=== PATIENT | female | born 1975 | race Caucasian/White ===

== ENCOUNTER 2016-11-17 14:28 | Emergency (ER) | payer BC, OTHER ==
[2016-11-17] MEDS ORDERED: ONDANSETRON 4 MG/2 ML VIAL IVP STA (15:37)
[2016-11-17] MEDS ORDERED: SODIUM CHLORIDE 0.9% 1,000 ML IV ONE (15:37)
[2016-11-17] MEDS ORDERED: FAMOTIDINE 20 MG/2 ML VIAL IV STA (15:37)
--- NOTE | 2016-11-17 15:46 | ED ---
General Adult HPI - General Chief complaint: Recheck/Abnormal Lab/Rx Stated complaint: fever cough Time Seen by Provider: 11/17/16 15:22 Source: patient Mode of arrival: ambulatory Limitations: no limitations - History of Present Illness Initial comments: This is a 41-year-old female who presents emergency department for multiple complaints. She states that she's been having flulike symptoms for the last month. She states that she's been very nauseated and had loss of appetite. She 's also felt chilled at home and fevers however she has not checked her temperature. She states that she thought it would just go away however she continues to feel worse so she decided come emergency department. She states that nothing seems to make the symptoms better or worse. She does admit to some epigastric abdominal pain associated with nausea. She has not seen her primary doctor or any doctor for this. She admits to some weight loss since the symptoms started. She denies any dysuria or hematuria. No vaginal bleeding or discharge. Last menstrual period was approximately 2 weeks ago. No sick contacts. No other complaints. - Related Data Home Medications Medication Instructions Recorded Confirmed Multivitamins, Thera [Multivitamin 1 tab PO DAILY 11/17/16 11/17/16 (formulary)] Previous Rx's Medication Instructions Recorded Diazepam [Valium] 5 mg PO BID PRN #15 tab 11/17/16 Metoclopramide [Reglan] 10 mg PO TID PRN #20 tab 11/17/16 Allergies Allergy/AdvReac Type Severity Reaction Status Date / Time Penicillins Allergy Dyspnea Verified 11/17/16 15:28 Review of Systems ROS Statement: Those systems with pertinent positive or pertinent negative responses have been documented in the HPI. ROS Other: All systems not noted in ROS Statement are negative. Past Medical History Past Medical History: Musculoskeletal Disorder Additional Past Medical History / Comment(s): herniated disc in neck. Less than one month ago pt. had a seizure. depression History of Any Multi-Drug Resistant Organisms: None Reported Past Surgical History: Appendectomy, Ear Surgery, Tubal Ligation Past Anesthesia/Blood Transfusion Reactions: No Reported Reaction Past Psychological History: Anxiety, Depression Smoking Status: Current every day smoker Past Alcohol Use History: Occasional Additional Past Alcohol Use History / Comment(s): Pt. states that she has drank twice in the last two months Past Drug Use History: Marijuana Additional Drug Use History / Comment(s): pt denies prior drug use - Past Family History Mother History Unknown: Yes Father History Unknown: Yes Additional Family Medical History / Comment(s): "excess iron" General Exam - General Exam Comments Initial Comments: Constitutional: Awake alert Appears comfortable Head: Normocephalic atraumatic Eyes: no conjunctival injection No scleral icterus EOMI ENT: TMs clear bilaterally, oropharynx is moist without any erythema Neck: No JVD Supple Heart: Regular rate rhythm normal S1-S2 no murmurs Lungs: Clear to auscultation bilaterally No wheezing No rales Abdomen: Soft nondistended mild tenderness in the epigastric region with no rebound or guarding Extremities: Non edematous DP pulses intact Radial pulses intact Neuro: A&Ox3 No focal neurologic deficits Psych: Appropriate mood and affect Limitations: no limitations Course Vital Signs 11/17/16 11/17/16 11/17/16 14:54 15:15 17:18 Temperature 97.7 F Pulse Rate 82 80 71 Respiratory 18 16 15 Rate Blood Pressure 124/72 132/77 116/55 O2 Sat by Pulse 100 100 95 Oximetry Medical Decision Making - Medical Decision Making This is a 41-year-old female presents emergency department for nausea, weight loss, chills, multiple other complaints at For last month. Blood work was reviewed and unremarkable. X-ray was also unremarkable. The patient was improved after Reglan and Valium. We'll send her home on these medications. The patient did update him that she was told that she needed to have a LEEP procedure for an abnormal Pap in the past however did not follow-up. She is also been having abnormal vaginal bleeding. Her blood counts are normal here but she needs close follow up with an [employer] for this. She also needs close follow-up with her primary doctor. Told to call make appointments. She can return if she has worsening symptoms. All questions are answered. - Lab Data Result diagrams: 11/17/16 15:48 11/17/16 15:48 Lab Results 11/17/16 11/17/16 11/17/16 Range/Units 15:48 15:48 15:50 WBC 10.8 H (3.8-10.6) k/uL RBC 4.71 (3.80-5.40) m/uL Hgb 15.7 (11.4-16.0) gm/dL Hct 47.5 H (34.0-46.0) % MCV 100.9 H (80.0-100.0) fL MCH 33.3 (25.0-35.0) pg MCHC 33.0 (31.0-37.0) g/dL RDW 13.8 (11.5-15.5) % Plt Count 347 (150-450) k/uL Neutrophils % 62 % Lymphocytes % 31 % Monocytes % 4 % Eosinophils % 1 % Basophils % 1 % Neutrophils # 6.7 (1.3-7.7) k/uL Lymphocytes # 3.3 (1.0-4.8) k/uL Monocytes # 0.4 (0-1.0) k/uL Eosinophils # 0.1 (0-0.7) k/uL Basophils # 0.1 (0-0.2) k/uL Macrocytosis Slight Sodium 138 (137-145) mmol/L Potassium 4.3 (3.5-5.1) mmol/L Chloride 102 (98-107) mmol/L Carbon Dioxide 25 (22-30) mmol/L Anion Gap 11 mmol/L BUN 10 (7-17) mg/dL Creatinine 0.72 (0.52-1.04) mg/dL Est GFR (MDRD) Af Amer >60 (>60 ml/min/1.73 sqM) Est GFR (MDRD) Non-Af >60 (>60 ml/min/1.73 sqM) Glucose 85 (74-99) mg/dL Calcium 10.2 (8.4-10.2) mg/dL Magnesium 2.0 (1.6-2.3) mg/dL Total Bilirubin 0.7 (0.2-1.3) mg/dL AST 26 (14-36) U/L ALT 29 (9-52) U/L Alkaline Phosphatase 62 (38-126) U/L Total Protein 8.1 (6.3-8.2) g/dL Albumin 4.9 (3.5-5.0) g/dL Amylase 48 (30-110) U/L Lipase 108 (23-300) U/L TSH 2.140 (0.465-4.680) mIU/L Urine Color Urine Appearance (Clear) Urine pH (5.0-8.0) Ur Specific Lilly (1.001-1.035) Urine Protein (Negative) Urine Glucose (UA) (Negative) Urine Ketones (Negative) Urine Blood (Negative) Urine Nitrite (Negative) Urine Bilirubin (Negative) Urine Urobilinogen (<2.0) mg/dL Ur Leukocyte Esterase (Negative) Urine HCG, Qual Not Detected (Not Detectd) Urine Opiates Screen (NotDetected) Ur Oxycodone Screen (NotDetected) Urine Methadone Screen (NotDetected) Ur Propoxyphene Screen (NotDetected) Ur Barbiturates Screen (NotDetected) U Tricyclic Antidepress (NotDetected) Ur Phencyclidine Scrn (NotDetected) Ur Amphetamines Screen (NotDetected) U Methamphetamines Scrn (NotDetected) U Benzodiazepines Scrn (NotDetected) Urine Cocaine Screen (NotDetected) U Marijuana (THC) Screen (NotDetected) 11/17/16 Range/Units 15:50 WBC (3.8-10.6) k/uL RBC (3.80-5.40) m/uL Hgb (11.4-16.0) gm/dL Hct (34.0-46.0) % MCV (80.0-100.0) fL MCH (25.0-35.0) pg MCHC (31.0-37.0) g/dL RDW (11.5-15.5) % Plt Count (150-450) k/uL Neutrophils % % Lymphocytes % % Monocytes % % Eosinophils % % Basophils % % Neutrophils # (1.3-7.7) k/uL Lymphocytes # (1.0-4.8) k/uL Monocytes # (0-1.0) k/uL Eosinophils # (0-0.7) k/uL Basophils # (0-0.2) k/uL Macrocytosis Sodium (137-145) mmol/L Potassium (3.5-5.1) mmol/L Chloride (98-107) mmol/L Carbon Dioxide (22-30) mmol/L Anion Gap mmol/L BUN (7-17) mg/dL Creatinine (0.52-1.04) mg/dL Est GFR (MDRD) Af Amer (>60 ml/min/1.73 sqM) Est GFR (MDRD) Non-Af (>60 ml/min/1.73 sqM) Glucose (74-99) mg/dL Calcium (8.4-10.2) mg/dL Magnesium (1.6-2.3) mg/dL Total Bilirubin (0.2-1.3) mg/dL AST (14-36) U/L ALT (9-52) U/L Alkaline Phosphatase (38-126) U/L Total Protein (6.3-8.2) g/dL Albumin (3.5-5.0) g/dL Amylase (30-110) U/L Lipase (23-300) U/L TSH (0.465-4.680) mIU/L Urine Color Light Yellow Urine Appearance Clear (Clear) Urine pH 7.0 (5.0-8.0) Ur Specific Lilly 1.006 (1.001-1.035) Urine Protein Negative (Negative) Urine Glucose (UA) Negative (Negative) Urine Ketones 1+ H (Negative) Urine Blood Negative (Negative) Urine Nitrite Negative (Negative) Urine Bilirubin Negative (Negative) Urine Urobilinogen <2.0 (<2.0) mg/dL Ur Leukocyte Esterase Negative (Negative) Urine HCG, Qual (Not Detectd) Urine Opiates Screen Not Detected (NotDetected) Ur Oxycodone Screen Not Detected (NotDetected) Urine Methadone Screen Not Detected (NotDetected) Ur Propoxyphene Screen Not Detected (NotDetected) Ur Barbiturates Screen Not Detected (NotDetected) U Tricyclic Antidepress Not Detected (NotDetected) Ur Phencyclidine Scrn Not Detected (NotDetected) Ur Amphetamines Screen Not Detected (NotDetected) U Methamphetamines Scrn Not Detected (NotDetected) U Benzodiazepines Scrn Not Detected (NotDetected) Urine Cocaine Screen Not Detected (NotDetected) U Marijuana (THC) Screen Detected H (NotDetected) Disposition Clinical Impression: Nausea, Weight loss Disposition: HOME SELF-CARE Condition: Stable Instructions: Acute Nausea and Vomiting (ED) Prescriptions: Diazepam [Valium] 5 mg PO BID PRN #15 tab PRN Reason: muscle cramp Metoclopramide [Reglan] 10 mg PO TID PRN #20 tab PRN Reason: Nausea Referrals: Jacqueline Cantu MD [Primary Care Provider] - 1-2 days Delilah Beltran MD [STAFF PHYSICIAN] - 1-2 days
[2016-11-17 15:56] LABS: Basophils # (A) 0.1 k/uL (0-0.2); Basophils % (A) 1 %; CHCM 33.9; Eosinophils # (A) 0.1 k/uL (0-0.7); Eosinophils % (A) 1 %; HCT 47.5 % (34.0-46.0); HGB 15.7 gm/dL (11.4-16.0); Luc % (Auto) 2; Lymphocytes # (A) 3.3 k/uL (1.0-4.8); Lymphocytes % (A) 31 %; MCH 33.3 pg (25.0-35.0); MCV 100.9 fL (80.0-100.0); Macrocytosis Slight; Mean Platelet Volume 6.6; Monocytes # (A) 0.4 k/uL (0-1.0); Monocytes % (A) 4 %; Neutrophils # (A) 6.7 k/uL (1.3-7.7); Neutrophils % (A) 62 %; RBC 4.71 m/uL (3.80-5.40); RDW 13.8 % (11.5-15.5); WBC 10.8 k/uL (3.8-10.6); WBC (Perox) 10.46
[2016-11-17 16:05] LABS: Appearance,Urine Clear (Clear); Bilirubin,Urine Negative (Negative); Glucose,Urine (UA) Negative (Negative); Ketones,Urine 1+ (Negative); Leukocyte Esterase,Urine Negative (Negative); Nitrite,Urine Negative (Negative); Protein,Urine Negative (Negative); Specific Gravity,Urine 1.006 (1.001-1.035); UA Billing (MACRO vs. MICRO) CHEM; Urobilinogen,Urine <2.0 mg/dL (<2.0)
[2016-11-17 16:11] LABS: ALT 29 U/L (9-52); AST 26 U/L (14-36); Alkaline Phosphatase 62 U/L (38-126); Amylase 48 U/L (30-110); Anion Gap 11 mmol/L; Blood Urea Nitrogen 10 mg/dL (7-17); Calcium 10.2 mg/dL (8.4-10.2); Carbon Dioxide 25 mmol/L (22-30); Chloride 102 mmol/L (98-107); Glucose 85 mg/dL (74-99); Non-African American GFR(MDRD) >60 (>60 ml/min/1.73 sqM); Potassium 4.3 mmol/L (3.5-5.1); Sodium 138 mmol/L (137-145); Total Bilirubin 0.7 mg/dL (0.2-1.3); Total Protein 8.1 g/dL (6.3-8.2)
--- NOTE | 2016-11-17 16:44 | XR ---
EXAMINATION TYPE: XR abdomen acute w cxr DATE OF EXAM: 11/17/2016 4:38 PM COMPARISON: NONE HISTORY: Umbilical pain TECHNIQUE: 3 views FINDINGS: Lungs are clear. There is no heart failure. Costophrenic angles are clear. Bowel gas pattern is normal. There is no sign of intestinal obstruction or pneumoperitoneum. There ar e surgical clips in the lower abdomen. There is no sign of a mass. Fecal pattern is normal. There are no pathologic calcifications over the kidneys.. IMPRESSION: Nonacute abdomen. No active cardiopulmonary disease. Chest x-ray is stable compared to 07/01/2016.
[2016-11-17] MEDS ORDERED: DIAZEPAM 5 MG/ML 2 ML SYRINGE IVP STA (16:53)
[2016-11-17] MEDS ORDERED: METOCLOPRAMIDE 5 MG/ML 2 ML VIAL IVP STA (16:53)
[2016-11-17 17:18] VITALS: BP 116/55; PULSE 71; RESP 15
[2016-11-17 17:40] VITALS: TEMP 97.8
== END 2016-11-17 17:42 | disposition home or self-care (01) ==
LOC: EC 14:28
DX: R11.0 Nausea (principal); R63.4 Abnormal weight loss; Z68.20 Body mass index [BMI] 20.0-20.9, adult; N93.9 Abnormal uterine and vaginal bleeding, unspecified; R50.9 Fever, unspecified; R05 Cough; R10.13 Epigastric pain; F17.200 Nicotine dependence, unspecified, uncomplicated; Z79.899 Other long term (current) drug therapy; Z88.0 Allergy status to penicillin
CPT/HCPCS: 36415; 80053; 84443; 82150; 83690; 83735; 85025; 81003; 81025; 80306; 74022; 99283; 96374; 96375 ×3; 96361; J2765; J3360; J2405

== ENCOUNTER 2016-12-19 11:05 | Emergency (ER) | payer BC, OTHER ==
--- NOTE | 2016-12-19 11:41 | ED ---
General Adult HPI - General Chief complaint: Extremity Injury, Upper Stated complaint: right wrist pain Time Seen by Provider: 12/19/16 11:36 Source: patient, RN notes reviewed Mode of arrival: ambulatory Limitations: no limitations - History of Present Illness Initial comments: Patient 41-year-old female who presents emergency room today with a chief complaint of injury to the right wrist that occurred yesterday. She does admit that she was putting a box overhead onto a shelf and she felt a pop in the right wrist. She does admit that it's worse with flexion and extension at the right wrist. Patient denies any other complaints associated symptoms. Patient denies any recent fever, chills, shortness of breath, chest pain, back pain, abdominal pain, nausea or vomiting, numbness or tingling, dysuria or hematuria, constipation or diarrhea, headaches or visual changes, or any other complaints. - Related Data Home Medications Medication Instructions Recorded Confirmed Multivitamins, Thera [Multivitamin 1 tab PO DAILY 11/17/16 12/19/16 (formulary)] Allergies Allergy/AdvReac Type Severity Reaction Status Date / Time Penicillins Allergy Dyspnea Verified 12/19/16 12:11 Review of Systems ROS Statement: Those systems with pertinent positive or pertinent negative responses have been documented in the HPI. ROS Other: All systems not noted in ROS Statement are negative. Past Medical History Past Medical History: Musculoskeletal Disorder Additional Past Medical History / Comment(s): herniated disc in neck. Less than one month ago pt. had a seizure. depression History of Any Multi-Drug Resistant Organisms: None Reported Past Surgical History: Appendectomy, Ear Surgery, Tubal Ligation Past Anesthesia/Blood Transfusion Reactions: No Reported Reaction Past Psychological History: Anxiety, Depression Smoking Status: Current every day smoker Past Alcohol Use History: Occasional Additional Past Alcohol Use History / Comment(s): Pt. states that she has drank twice in the last two months Past Drug Use History: Marijuana Additional Drug Use History / Comment(s): pt denies prior drug use - Past Family History Mother History Unknown: Yes Father History Unknown: Yes Additional Family Medical History / Comment(s): "excess iron" General Exam - General Exam Comments Initial Comments: General: The patient is awake and alert, in no distress, and does not appear acutely ill. Neck: The neck is supple, there is no tenderness or JVD. Cardiovascular: There is a regular rate and rhythm. No murmur, rub or gallop is appreciated. Respiratory: Lungs are clear to auscultation, respirations are non-labored, breath sounds are equal. No wheezes, stridor, rales, or rhonchi. Musculoskeletal: Patient has normal appearance of the right wrist no obvious deformity. Shows limited range of motion both flexion and extension due to pain. Patient does have tenderness of the distal right radius. No tenderness in snuffbox area. Cap refill less than 2 seconds. Sensations intact. Pulses equal bilaterally 2+. Strength 5/5. Neurological: A&O x 3. CN II-XII intact, There are no obvious motor or sensory deficits. Coordination appears grossly intact. Speech is normal. Skin: Skin is warm and dry and no rashes or lesions are noted. Psychiatric: Normal mood and affect. Limitations: no limitations Course Vital Signs 12/19/16 11:26 Temperature 99 F Pulse Rate 92 Respiratory 20 Rate Blood Pressure 114/55 O2 Sat by Pulse 100 Oximetry Medical Decision Making - Medical Decision Making Patient's x-ray reviewed and negative for any acute abnormalities. Results were discussed with the patient. She'll be placed in Mike wrap. Advised to use this during the day when she is up moving around but not sleep. Advised follow- up family doctor or orthopedics over the next week if symptoms persist. Advised ice elevate and use ibuprofen for pain. Disposition Clinical Impression: Wrist sprain Disposition: HOME SELF-CARE Condition: Good Instructions: Wrist Sprain (ED) Additional Instructions: Continue to ice elevate the affected area at least 4 times a day for 20 minutes at a time. Please use Mike wrap on up and moving around as discussed. Do not sleep with this on. Please use ibuprofen for pain. Please follow-up family doctor or orthopedics over the next 7-10 days if symptoms persist. Please return for any other concerns. Referrals: Jacqueline Cantu MD [Primary Care Provider] - 1-2 days Time of Disposition: 12:27
--- NOTE | 2016-12-19 11:59 | XR ---
EXAMINATION TYPE: XR wrist complete RT DATE OF EXAM: 12/19/2016 CLINICAL HISTORY: Right wrist pain after lifting injury. TECHNIQUE: Frontal, lateral, scaphoid, and oblique images of the right wrist are obtained. COMPARISON: None FINDINGS: There is no acute fracture/dislocation evident in the right wrist. The joint spaces in th e right wrist appear within normal limits. A 2 mm well-defined ossific fragment is suspected old tiny avulsion fracture from ulnar styloid. The overlying soft tissue appears unremarkable. IMPRESSION: There is no acute fracture or dislocation in the right wrist.
[2016-12-19 12:38] VITALS: BP 121/71; PULSE 78; RESP 16; TEMP 99.4
== END 2016-12-19 12:40 | disposition home or self-care (01) ==
LOC: EC 11:05
DX: S63.501A Unspecified sprain of right wrist, initial encounter (principal); F17.200 Nicotine dependence, unspecified, uncomplicated; Z88.0 Allergy status to penicillin; Z79.899 Other long term (current) drug therapy; X50.0XXA Overexertion from strenuous movement or load, initial encounter
CPT/HCPCS: 99283

== ENCOUNTER 2017-12-07 19:06 | Emergency (ER) | payer BC, OTHER ==
[2017-12-07 19:11] VITALS: RESP 18
[2017-12-07] MEDS ORDERED: IPRATROPIUM-ALBUTEROL 3 ML NEB INHALATION STA (19:42)
[2017-12-07] MEDS ORDERED: KETOROLAC 30 MG/ML 1 ML VIAL IVP STA (19:44)
--- NOTE | 2017-12-07 19:45 | ED ---
Chest Pain HPI - General Chief Complaint: Chest Pain Stated Complaint: chest pain Time Seen by Provider: 12/07/17 19:32 Source: patient, RN notes reviewed Mode of arrival: wheelchair Limitations: no limitations - History of Present Illness Initial Comments: This is a 42-year-old female who states she in the past is had a cardiac procedure for irregular heartbeat who states she still having chest pain all day while at work she points her left upper chest wall sharp in nature is worse with certain movements and deep breathing she also has a cough with some phlegm no fevers chills or sweats. She states she had a cough for about a month on and off she is a smoker one pack of cigarettes per day. She does state that she has exertional dyspnea. She has no personal history of any coronary artery disease. She denies any other complaints at this time. She is very anxious she states. MD Complaint: chest pain, other - Related Data Previous Rx's Medication Instructions Recorded Albuterol Inhaler [Ventolin Hfa 2 puff INHALATION Q6HR PRN #1 12/07/17 Inhaler] inhaler Ibuprofen 800 mg PO Q6HR PRN #20 tablet 12/07/17 predniSONE 20 mg PO BID #10 tab 12/07/17 Allergies Allergy/AdvReac Type Severity Reaction Status Date / Time Penicillins Allergy Dyspnea Verified 12/07/17 19:47 Review of Systems ROS Statement: Those systems with pertinent positive or pertinent negative responses have been documented in the HPI. ROS Other: All systems not noted in ROS Statement are negative. EKG Findings - EKG Results: EKG: interpreted by YEMI ACOSTA, sinus rhythm, normal axis, normal QRS, normal ST/ T, no acute changes (EKG shows normal sinus rhythm a 74 NJ interval 122 QRS 86 QT since QTC of 384/426 this is a normal-appearing EKG) Past Medical History Past Medical History: Musculoskeletal Disorder Additional Past Medical History / Comment(s): herniated disc in neck. Less than one month ago pt. had a seizure. depression History of Any Multi-Drug Resistant Organisms: None Reported Past Surgical History: Appendectomy, Ear Surgery, Tubal Ligation Past Anesthesia/Blood Transfusion Reactions: No Reported Reaction Past Psychological History: Anxiety, Depression Smoking Status: Current every day smoker Past Alcohol Use History: Occasional Past Drug Use History: Marijuana - Past Family History Mother History Unknown: Yes Father History Unknown: Yes Additional Family Medical History / Comment(s): "excess iron" General Exam - General Exam Comments Initial Comments: This a well-developed well-nourished awake alert oriented 3 female Limitations: no limitations General appearance: anxious Head exam: Present: atraumatic, normocephalic, normal inspection Eye exam: Present: normal appearance, PERRL, EOMI. Absent: scleral icterus, conjunctival injection, periorbital swelling ENT exam: Present: normal exam, mucous membranes moist Neck exam: Present: normal inspection. Absent: tenderness, meningismus, lymphadenopathy Respiratory exam: Present: normal lung sounds bilaterally, chest wall tenderness. Absent: respiratory distress, wheezes, rales, rhonchi, stridor Cardiovascular Exam: Present: regular rate, normal rhythm, normal heart sounds. Absent: systolic murmur, diastolic murmur, rubs, gallop, clicks GI/Abdominal exam: Present: soft, normal bowel sounds. Absent: distended, tenderness, guarding, rebound, rigid Extremities exam: Present: normal inspection, full ROM, normal capillary refill. Absent: tenderness, pedal edema, joint swelling, calf tenderness Back exam: Present: normal inspection Neurological exam: Present: alert, oriented X3, CN II-XII intact Psychiatric exam: Present: normal affect, normal mood Skin exam: Present: warm, dry, intact, normal color. 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 Reevaluation #2: 12/07/17 21:11 We did discuss smoking cessation the told conversation lasting 3.1 minutes Chest Pain MDM - MDM I did review the imaging no acute findings patient did get marked improvement from the medication was given the patient's presentation consistent with a bronchospasm and costochondritis she was instructed to quit smoking we discharged with appropriate medication. Disposition Clinical Impression: Costalchondritis, Chest wall syndrome, Acute bronchospasm, Smoking Disposition: HOME SELF-CARE Condition: Stable Instructions: Costochondritis (ED), Chest Pain (ED), Bronchospasm (ED), How to Stop Smoking (ED) Prescriptions: Albuterol Inhaler [Ventolin Hfa Inhaler] 2 puff INHALATION Q6HR PRN #1 inhaler PRN Reason: Dyspnea Ibuprofen 800 mg PO Q6HR PRN #20 tablet PRN Reason: Pain predniSONE 20 mg PO BID #10 tab Is patient prescribed a controlled substance at d/c from ED?: No Referrals: Jacqueline Cantu MD [Primary Care Provider] - 1-2 days
[2017-12-07 20:08] LABS: Basophils # (A) 0.1 k/uL (0-0.2); Basophils % (A) 1 %; Eosinophils # (A) 0.3 k/uL (0-0.7); Eosinophils % (A) 3 %; HCT 44.1 % (34.0-46.0); HGB 14.8 gm/dL (11.4-16.0); Lymphocytes # (A) 3.2 k/uL (1.0-4.8); Lymphocytes % (A) 33 %; MCH 32.4 pg (25.0-35.0); MCHC 33.5 g/dL (31.0-37.0); MCV 96.7 fL (80.0-100.0); Mean Platelet Volume 6.7; Monocytes # (A) 0.6 k/uL (0-1.0); Monocytes % (A) 6 %; Neutrophils # (A) 5.3 k/uL (1.3-7.7); Neutrophils % (A) 56 %; Platelet Count 381 k/uL (150-450); RBC 4.56 m/uL (3.80-5.40); RDW 12.9 % (11.5-15.5); WBC 9.6 k/uL (3.8-10.6)
--- NOTE | 2017-12-07 20:19 | XR ---
EXAMINATION TYPE: XR chest 2V DATE OF EXAM: 12/07/2017 COMPARISON: Prior chest 07/01/2016 HISTORY: Chest pain, shortness of breath and cough TECHNIQUE: Frontal and lateral views of the chest are obtained. FINDINGS: There is no focal air space opacity, pleural effusion, or pneumothorax seen. The cardiac silhouette size is within normal limits. Prominent lung lines suggest underlying COPD. The osseous st ructures are intact. IMPRESSION: No acute cardiopulmonary process.
[2017-12-07 20:31] LABS: ALT 28 U/L (9-52); AST 25 U/L (14-36); Alkaline Phosphatase 61 U/L (38-126); Amylase 41 U/L (30-110); Anion Gap 11 mmol/L; Blood Urea Nitrogen 11 mg/dL (7-17); Calcium 9.6 mg/dL (8.4-10.2); Carbon Dioxide 26 mmol/L (22-30); Chloride 104 mmol/L (98-107); Glucose 72 mg/dL (74-99); Lipase 200 U/L (23-300); Magnesium 2.1 mg/dL (1.6-2.3); Potassium 4.1 mmol/L (3.5-5.1); Sodium 141 mmol/L (137-145); Total Bilirubin 0.3 mg/dL (0.2-1.3); Total Protein 6.4 g/dL (6.3-8.2)
[2017-12-07 20:37] LABS: D-Dimer 0.27 mg/L FEU (<0.60); Partial Thromboplastin Time 24.5 sec (22.0-30.0); Prothrombin Time 9.6 sec (9.0-12.0)
[2017-12-07 21:00] LABS: Creatine Kinase 144 U/L (30-135)
[2017-12-07 21:17] LABS: Creatine Kinase MB 1.8 ng/mL (0.0-2.4); Troponin I <0.012 ng/mL (0.000-0.034)
[2017-12-07 21:27] VITALS: BP 107/57; PULSE 82; TEMP 97.6
== END 2017-12-07 21:28 | disposition home or self-care (01) ==
LOC: EC 19:06
DX: J98.01 Acute bronchospasm (principal); M94.0 Chondrocostal junction syndrome [Tietze]; R07.1 Chest pain on breathing; F17.200 Nicotine dependence, unspecified, uncomplicated; Z88.0 Allergy status to penicillin
CPT/HCPCS: 36415; 94640; 93005; 85379; 83880; 80053; 82150; 82550; 82553; 83690; 83735; 84484; 85025; 85610; 85730; 71046; 99285; 96374; 99406; J1885

== ENCOUNTER 2018-04-02 10:40 | Emergency (ER) | payer BC, OTHER ==
--- NOTE | 2018-04-02 11:19 | ED ---
General Adult HPI - General Source: patient, RN notes reviewed, old records reviewed Mode of arrival: ambulatory Limitations: no limitations <Yuan Fagan - Last Filed: 04/02/18 16:10> <Yuan Hogue - Last Filed: 04/02/18 20:49> - General Chief complaint: Psychiatric Symptoms Stated complaint: EPS eval Time Seen by Provider: 04/02/18 10:47 - History of Present Illness Initial comments: 43-year-old female presenting with alcohol abuse and suicidal ideation. Patient states she's had worsening suicidal thoughts over the past 2 weeks. She denies any plan. She was urged by her family members to seek medical attention. She does admit to daily drinking for the past 7 months. She admits she is alcoholic. She also states she took a Xanax several days ago to help improve her symptoms. She denies any suicide attempt or ingestion. Denies any physical complaints. (Yuan Fagan) - Related Data Home Medications Medication Instructions Recorded Confirmed No Known Home Medications 04/02/18 04/02/18 Allergies Allergy/AdvReac Type Severity Reaction Status Date / Time Penicillins Allergy Dyspnea Verified 04/02/18 10:47 Review of Systems ROS Other: All systems not noted in ROS Statement are negative. <Yuan Fagan - Last Filed: 04/02/18 16:10> ROS Other: All systems not noted in ROS Statement are negative. <Yuan Hogue - Last Filed: 04/02/18 20:49> ROS Statement: Those systems with pertinent positive or pertinent negative responses have been documented in the HPI. Past Medical History Past Medical History: Musculoskeletal Disorder Additional Past Medical History / Comment(s): herniated disc in neck. Less than one month ago pt. had a seizure. depression History of Any Multi-Drug Resistant Organisms: None Reported Past Surgical History: Appendectomy, Ear Surgery, Tubal Ligation Past Anesthesia/Blood Transfusion Reactions: No Reported Reaction Past Psychological History: Anxiety, Depression Smoking Status: Current every day smoker Past Alcohol Use History: Abuse, Heavy Past Drug Use History: Marijuana - Past Family History Mother History Unknown: Yes Father History Unknown: Yes Additional Family Medical History / Comment(s): "excess iron" <Yuan Fagan - Last Filed: 04/02/18 16:10> General Exam Limitations: no limitations General appearance: alert, in no apparent distress, anxious Head exam: Present: atraumatic, normocephalic Eye exam: Present: normal appearance, PERRL, EOMI ENT exam: Present: mucous membranes dry Neck exam: Present: normal inspection. Absent: tenderness, meningismus Respiratory exam: Present: normal lung sounds bilaterally. Absent: respiratory distress, wheezes Cardiovascular Exam: Present: regular rate, normal rhythm GI/Abdominal exam: Present: soft. Absent: distended, tenderness, guarding Extremities exam: Present: normal inspection, normal capillary refill. Absent: pedal edema Back exam: Present: normal inspection Neurological exam: Present: alert, oriented X3, CN II-XII intact. Absent: motor sensory deficit Psychiatric exam: Present: depressed, anxious, suicidal ideation Skin exam: Present: warm, dry, intact, normal color <Yuan Fagan - Last Filed: 04/02/18 16:10> Course <Yuan Fagan - Last Filed: 04/02/18 16:10> <Yuan Hogue - Last Filed: 04/02/18 20:49> Vital Signs 04/02/18 04/02/18 04/02/18 10:45 14:00 19:13 Temperature 98.4 F Pulse Rate 113 H 81 77 Respiratory 20 16 18 Rate Blood Pressure 121/70 99/49 104/49 O2 Sat by Pulse 98 99 98 Oximetry 04/02/18 04/02/18 19:32 20:29 Temperature 98.5 F Pulse Rate 74 Respiratory 18 Rate Blood Pressure 103/57 O2 Sat by Pulse 100 Oximetry - Reevaluation(s) Reevaluation #1: 04/02/18 16:10 Patient's care is signed out to oncoming physician Dr. Hogue awaiting EPS disposition. (Yuan Fagan) Medical Decision Making - Lab Data Result diagrams: 04/02/18 13:36 04/02/18 13:36 <Yuan Fagan - Last Filed: 04/02/18 16:10> - Lab Data Result diagrams: 04/02/18 13:36 04/02/18 13:36 <Yuan Hogue - Last Filed: 04/02/18 20:49> - Medical Decision Making The patient will be transferred to [facility] for inpatient treatment I did fill out transfer paperwork. (Yuan Hogue) - Lab Data Lab Results 04/02/18 04/02/18 04/02/18 Range/Units 11:00 13:36 13:36 WBC 11.6 H (3.8-10.6) k/uL RBC 4.81 (3.80-5.40) m/uL Hgb 15.3 (11.4-16.0) gm/dL Hct 49.9 H (34.0-46.0) % MCV 103.9 H (80.0-100.0) fL MCH 31.9 (25.0-35.0) pg MCHC 30.7 L (31.0-37.0) g/dL RDW 13.1 (11.5-15.5) % Plt Count 468 H (150-450) k/uL Neutrophils % 67 % Lymphocytes % 25 % Monocytes % 4 % Eosinophils % 3 % Basophils % 1 % Neutrophils # 7.7 (1.3-7.7) k/uL Lymphocytes # 2.9 (1.0-4.8) k/uL Monocytes # 0.4 (0-1.0) k/uL Eosinophils # 0.3 (0-0.7) k/uL Basophils # 0.1 (0-0.2) k/uL Macrocytosis Slight Sodium 143 (137-145) mmol/L Potassium 5.0 (3.5-5.1) mmol/L Chloride 107 (98-107) mmol/L Carbon Dioxide 27 (22-30) mmol/L Anion Gap 9 mmol/L BUN 12 (7-17) mg/dL Creatinine 0.80 (0.52-1.04) mg/dL Est GFR (CKD-EPI)AfAm >90 (>60 ml/min/1.73 sqM) Est GFR (CKD-EPI)NonAf >90 (>60 ml/min/1.73 sqM) Glucose 74 (74-99) mg/dL Calcium 9.9 (8.4-10.2) mg/dL Total Bilirubin 0.3 (0.2-1.3) mg/dL AST 34 (14-36) U/L ALT 21 (9-52) U/L Alkaline Phosphatase 64 (38-126) U/L Total Protein 8.1 (6.3-8.2) g/dL Albumin 4.9 (3.5-5.0) g/dL Urine Opiates Screen Not Detected (NotDetected) Ur Oxycodone Screen Not Detected (NotDetected) Urine Methadone Screen Not Detected (NotDetected) Ur Propoxyphene Screen Not Detected (NotDetected) Ur Barbiturates Screen Not Detected (NotDetected) U Tricyclic Antidepress Not Detected (NotDetected) Ur Phencyclidine Scrn Not Detected (NotDetected) Ur Amphetamines Screen Not Detected (NotDetected) U Methamphetamines Scrn Not Detected (NotDetected) U Benzodiazepines Scrn Not Detected (NotDetected) Urine Cocaine Screen Not Detected (NotDetected) U Marijuana (THC) Screen Detected H (NotDetected) Disposition <Yuan Fagan - Last Filed: 04/02/18 16:10> <Yuan Hogue - Last Filed: 04/02/18 20:49> Clinical Impression: Suicidal ideation, Depression, Alcohol intoxication Disposition: TRANSFER TO PSYCH HOSP/UNIT Condition: Stable Referrals: None,Stated [Primary Care Provider] - 1-2 days
[2018-04-02 11:27] LABS: Amphetamine Screen,Urine Not Detected (NotDetected); Barbiturate Screen,Urine Not Detected (NotDetected); Benzodiazepines Screen,Urine Not Detected (NotDetected); Cocaine Screen,Urine Not Detected (NotDetected); Methadone Screen, Urine Not Detected (NotDetected); Opiate Screen,Urine Not Detected (NotDetected); Oxycodone Screen, Urine Not Detected (NotDetected); Phencyclidine Screen,Urine Not Detected (NotDetected); Tricyclic Antidepressant,Urine Not Detected (NotDetected); Urn Cannabinoid Scrn Detected (NotDetected)
[2018-04-02] MEDS ORDERED: LORazepam 2 MG/ML INJ IV PRN ×3 (12:48)
[2018-04-02] MEDS ORDERED: THIAMINE 100 MG/ML 2 ML VIAL IM STA (12:48)
[2018-04-02 14:10] LABS: Basophils # (A) 0.1 k/uL (0-0.2); Basophils % (A) 1 %; Eosinophils # (A) 0.3 k/uL (0-0.7); Eosinophils % (A) 3 %; HCT 49.9 % (34.0-46.0); HGB 15.3 gm/dL (11.4-16.0); Lymphocytes # (A) 2.9 k/uL (1.0-4.8); Lymphocytes % (A) 25 %; MCH 31.9 pg (25.0-35.0); MCHC 30.7 g/dL (31.0-37.0); MCV 103.9 fL (80.0-100.0); Macrocytosis Slight; Mean Platelet Volume 6.7; Monocytes # (A) 0.4 k/uL (0-1.0); Monocytes % (A) 4 %; Neutrophils # (A) 7.7 k/uL (1.3-7.7); Neutrophils % (A) 67 %; Platelet Count 468 k/uL (150-450); RBC 4.81 m/uL (3.80-5.40); RDW 13.1 % (11.5-15.5); WBC 11.6 k/uL (3.8-10.6)
[2018-04-02 14:20] LABS: ALT 21 U/L (9-52); AST 34 U/L (14-36); Albumin 4.9 g/dL (3.5-5.0); Alkaline Phosphatase 64 U/L (38-126); Anion Gap 9 mmol/L; Blood Urea Nitrogen 12 mg/dL (7-17); Calcium 9.9 mg/dL (8.4-10.2); Carbon Dioxide 27 mmol/L (22-30); Chloride 107 mmol/L (98-107); Glucose 74 mg/dL (74-99); Sodium 143 mmol/L (137-145); Total Bilirubin 0.3 mg/dL (0.2-1.3); Total Protein 8.1 g/dL (6.3-8.2)
[2018-04-02 19:14] VITALS: RESP 18
[2018-04-02 19:33] VITALS: TEMP 98.5
[2018-04-02 20:29] VITALS: BP 103/57; PULSE 74
[2018-04-03] MEDS ORDERED: THIAMINE 100 MG TAB PO SCH (12:00)
== END 2018-04-02 21:18 ==
LOC: EC 10:40
DX: R45.851 Suicidal ideations (principal); F32.9 Major depressive disorder, single episode, unspecified; F10.129 Alcohol abuse with intoxication, unspecified; F41.9 Anxiety disorder, unspecified; F17.200 Nicotine dependence, unspecified, uncomplicated; Z88.0 Allergy status to penicillin
CPT/HCPCS: 36415; 80053; 85025; 80306; 99285; 96374; 96372; J2060; J3411; 82075

== ENCOUNTER 2018-07-27 11:42 | Emergency (ER) | payer OTHER ==
[2018-07-27 11:54] VITALS: RESP 18
--- NOTE | 2018-07-27 12:50 | ED ---
General Adult HPI - General Chief complaint: Psychiatric Symptoms Stated complaint: mental health Time Seen by Provider: 07/27/18 11:50 Source: patient, RN notes reviewed Mode of arrival: ambulatory Limitations: no limitations - History of Present Illness Initial comments: This is a 43-year-old female presents emergency Department with a past medical history significant for alcoholism. Patient states she just got out of rehab approximately 3 weeks ago. Patient states ever since she's been having panic attacks and feeling like she wants to kill herself. Patient states it occurs at least once a day and today she so shaky when she was at [facility] they recommended her to come to the emergency department. Patient states she has no specific plan for suicide but she does think about it daily. Patient states she is on Prozac and Neurontin at this time. Patient states she has had no alcohol since she went into rehab and has done no drugs. Patient denies any chest pain difficult breathing shortness of breath. Patient denies any abdominal pain patient denies any nausea vomiting diarrhea. Patient denies any recent fever chills or cough. - Related Data Home Medications Medication Instructions Recorded Confirmed FLUoxetine HCL [PROzac] 20 mg PO DAILY 07/27/18 07/27/18 Gabapentin [Neurontin] 300 mg PO TID 07/27/18 07/27/18 Vivitrol 1 injection SQ Q30D 07/27/18 07/27/18 traZODone HCL [Desyrel] 100 mg PO HS 07/27/18 07/27/18 Allergies Allergy/AdvReac Type Severity Reaction Status Date / Time Penicillins Allergy Dyspnea Verified 07/27/18 12:14 Review of Systems ROS Statement: Those systems with pertinent positive or pertinent negative responses have been documented in the HPI. ROS Other: All systems not noted in ROS Statement are negative. Past Medical History Past Medical History: Musculoskeletal Disorder Additional Past Medical History / Comment(s): herniated disc in neck. Less than one month ago pt. had a seizure. depression History of Any Multi-Drug Resistant Organisms: None Reported Past Surgical History: Appendectomy, Ear Surgery, Tubal Ligation Past Anesthesia/Blood Transfusion Reactions: No Reported Reaction Past Psychological History: Anxiety, Depression Smoking Status: Current every day smoker Past Alcohol Use History: None Reported, Abuse Past Drug Use History: None Reported, Marijuana - Past Family History Mother History Unknown: Yes Father History Unknown: Yes Additional Family Medical History / Comment(s): "excess iron" General Exam - General Exam Comments Initial Comments: GENERAL: Patient is well-developed and well-nourished. Patient is nontoxic and well- hydrated and is in no acute distress. ENT: Neck is soft and supple. No significant lymphadenopathy is noted. Oropharynx is clear. Moist mucous membranes. Neck has full range of motion without eliciting any pain EYES: The sclera were anicteric and conjunctiva were pink and moist. Extraocular movements were intact and pupils were equal round and reactive to light. Eyelids were unremarkable. PULMONARY: Unlabored respirations. Good breath sounds bilaterally. No audible rales rhonchi or wheezing was noted. CARDIOVASCULAR: There is a regular rate and rhythm without any murmurs gallops or rubs. ABDOMEN: Soft and nontender with normal bowel sounds. SKIN: Skin is clear with no lesions or rashes and otherwise unremarkable. NEUROLOGIC: Patient is alert and oriented x3. Cranial nerves II through XII are grossly intact. Motor and sensory are also intact. Normal speech, volume and content. Symmetrical smile. MUSCULOSKELETAL: Normal extremities with adequate strength and full range of motion. LYMPHATICS: No significant lymphadenopathy is noted PSYCHIATRIC: Patient states she is having panic attacks and is having suicidal ideations daily. Limitations: no limitations Course Vital Signs 07/27/18 11:50 Temperature 98.5 F Pulse Rate 70 Respiratory 18 Rate Blood Pressure 111/71 O2 Sat by Pulse 100 Oximetry Medical Decision Making - Medical Decision Making Patient was evaluated by mobile crisis unit and they determined along with the patient that she would be safe at a [facility]-quarter home called the [facility] and at this point time the patient is denying any suicidal ideations. - Lab Data Lab Results 07/27/18 Range/Units 14:00 Urine Opiates Screen Not Detected (NotDetected) Ur Oxycodone Screen Not Detected (NotDetected) Urine Methadone Screen Not Detected (NotDetected) Ur Propoxyphene Screen Not Detected (NotDetected) Ur Barbiturates Screen Not Detected (NotDetected) U Tricyclic Antidepress Not Detected (NotDetected) Ur Phencyclidine Scrn Not Detected (NotDetected) Ur Amphetamines Screen Not Detected (NotDetected) U Methamphetamines Scrn Not Detected (NotDetected) U Benzodiazepines Scrn Not Detected (NotDetected) Urine Cocaine Screen Not Detected (NotDetected) U Marijuana (THC) Screen Not Detected (NotDetected) Disposition Clinical Impression: Acute anxiety Disposition: HOME SELF-CARE Condition: Good Instructions: Depression (DC), Suicide Prevention (ED), Anxiety (ED) Is patient prescribed a controlled substance at d/c from ED?: No Referrals: Sabi Villa [Primary Care Provider] - 1-2 days Time of Disposition: 15:52
[2018-07-27] MEDS ORDERED: LORazepam 2 MG/ML INJ IV STA (13:43)
[2018-07-27] MEDS ORDERED: LORazepam 1 MG TAB PO STA (13:45)
[2018-07-27 14:21] LABS: Amphetamine Screen,Urine Not Detected (NotDetected); Barbiturate Screen,Urine Not Detected (NotDetected); Benzodiazepines Screen,Urine Not Detected (NotDetected); Cocaine Screen,Urine Not Detected (NotDetected); Methadone Screen, Urine Not Detected (NotDetected); Opiate Screen,Urine Not Detected (NotDetected); Oxycodone Screen, Urine Not Detected (NotDetected); Phencyclidine Screen,Urine Not Detected (NotDetected); Tricyclic Antidepressant,Urine Not Detected (NotDetected); Urn Cannabinoid Scrn Not Detected (NotDetected)
[2018-07-27 19:16] VITALS: BP 114/59; PULSE 88; TEMP 97.9
== END 2018-07-27 19:15 | disposition home or self-care (01) ==
LOC: EC 11:42
DX: F41.9 Anxiety disorder, unspecified (principal); F32.9 Major depressive disorder, single episode, unspecified; F17.200 Nicotine dependence, unspecified, uncomplicated; G40.909 Epilepsy, unspecified, not intractable, without status epilepticus; Z79.899 Other long term (current) drug therapy; Z88.0 Allergy status to penicillin; Z53.8 Procedure and treatment not carried out for other reasons
CPT/HCPCS: 80306; 99285

== ENCOUNTER 2018-10-27 16:34 | Emergency (ER) | payer OTHER ==
[2018-10-27 16:54] LABS: Glucose,Whole Blood 86 mg/dL (75-99)
[2018-10-27 17:22] LABS: Basophils # (A) 0.1 k/uL (0-0.2); Basophils % (A) 1 %; Eosinophils # (A) 0.2 k/uL (0-0.7); Eosinophils % (A) 3 %; HCT 41.3 % (34.0-46.0); HGB 13.4 gm/dL (11.4-16.0); Lymphocytes # (A) 2.6 k/uL (1.0-4.8); Lymphocytes % (A) 29 %; MCH 31.4 pg (25.0-35.0); MCHC 32.5 g/dL (31.0-37.0); MCV 96.6 fL (80.0-100.0); Mean Platelet Volume 7.2; Monocytes # (A) 0.3 k/uL (0-1.0); Monocytes % (A) 4 %; Neutrophils # (A) 5.5 k/uL (1.3-7.7); Neutrophils % (A) 62 %; Platelet Count 496 k/uL (150-450); RBC 4.27 m/uL (3.80-5.40); WBC 8.9 k/uL (3.8-10.6)
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
[2018-10-27 17:28] LABS: INR 0.9 (<1.2); Partial Thromboplastin Time 23.9 sec (22.0-30.0); Prothrombin Time 10.1 sec (9.0-12.0)
[2018-10-27 17:30] LABS: ALT 23 U/L (9-52); AST 22 U/L (14-36); Albumin 4.2 g/dL (3.5-5.0); Alcohol <10 mg/dL; Alkaline Phosphatase 64 U/L (38-126); Anion Gap 6 mmol/L; Blood Urea Nitrogen 9 mg/dL (7-17); Calcium 9.4 mg/dL (8.4-10.2); Carbon Dioxide 25 mmol/L (22-30); Chloride 107 mmol/L (98-107); Glucose 89 mg/dL (74-99); Potassium 4.7 mmol/L (3.5-5.1); Sodium 138 mmol/L (137-145); Total Bilirubin 0.3 mg/dL (0.2-1.3); Total Protein 6.5 g/dL (6.3-8.2)
[2018-10-27 17:36] VITALS: BP 113/77; PULSE 76; RESP 18; TEMP 98.5
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
[2018-10-27] MEDS ORDERED: LORazepam 2 MG/ML INJ IV STA (18:14)
[2018-10-27] MEDS ORDERED: HYDROmorphone 1 MG/ML 1 ML SYRINGE IVP STA (18:14)
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
[2018-10-27 18:45] LABS: Appearance,Urine Clear (Clear); Bilirubin,Urine Negative (Negative); Blood,Urine Negative (Negative); Color,Urine Light Yellow; Glucose,Urine (UA) Negative (Negative); Ketones,Urine Negative (Negative); Leukocyte Esterase,Urine Negative (Negative); Nitrite,Urine Negative (Negative); PH, Urine 7.5 (5.0-8.0); Protein,Urine Negative (Negative); Specific Gravity,Urine 1.026 (1.001-1.035); Urobilinogen,Urine <2.0 mg/dL (<2.0)
[2018-10-27 18:57] LABS: Amphetamine Screen,Urine Not Detected (NotDetected); Barbiturate Screen,Urine Not Detected (NotDetected); Benzodiazepines Screen,Urine Not Detected (NotDetected); Cocaine Screen,Urine Not Detected (NotDetected); Methadone Screen, Urine Not Detected (NotDetected); Opiate Screen,Urine Not Detected (NotDetected); Oxycodone Screen, Urine Not Detected (NotDetected); Phencyclidine Screen,Urine Not Detected (NotDetected); Tricyclic Antidepressant,Urine Not Detected (NotDetected); Urn Cannabinoid Scrn Detected (NotDetected)
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
== END 2018-10-27 19:18 | disposition home or self-care (01) ==
LOC: EC 16:34
DX: S16.1XXA Strain of muscle, fascia and tendon at neck level, initial encounter (principal); S39.012A Strain of muscle, fascia and tendon of lower back, initial encounter; F32.9 Major depressive disorder, single episode, unspecified; F41.9 Anxiety disorder, unspecified; F17.200 Nicotine dependence, unspecified, uncomplicated; Z79.899 Other long term (current) drug therapy; Z88.0 Allergy status to penicillin; V43.63XA Car passenger injured in collision with pick-up truck in traffic accident, initial encounter; Y92.410 Unspecified street and highway as the place of occurrence of the external cause; Z71.6 Tobacco abuse counseling
CPT/HCPCS: 36415; 93005; 86900; 86901; 80053; 83605; 84484; 85025; 85610; 85730; 86850; 81003; 81025; 80306; 80320; 72050; 72110; 72170; 71045; 72125; 70450; 71260; 74177; 99291; 96374; 96375; 99406; J2060; J1170; Q9967; 96361

== ENCOUNTER → 2020-03-13 | Outpatient (CLI) | payer OTHER | END | disposition home or self-care (01) | LOC: LABWHC1 11:30 | PROVIDERS: ATTEND Emergency Medicine | DX: Z20.828 Contact with and (suspected) exposure to other viral communicable diseases (principal) | CPT/HCPCS: U0003; C9803 ==

== ENCOUNTER 2020-03-28 19:29 | Emergency (ER) | payer OTHER ==
[2020-03-28 19:41] VITALS: BP 124/75; PULSE 93; RESP 16; TEMP 98.5
[2020-03-28] MEDS ORDERED: ACET/COD 300 MG/30 MG STARTER PACK 6 TAB BTL PO STA (20:57)
[2020-03-28] MEDS ORDERED: MORPHINE SULFATE 4 MG/ML SYRINGE IM STA (20:57)
[2020-03-28] MEDS ORDERED: KETOROLAC 15 MG/ML 1 ML VIAL IM STA (20:57)
[2020-03-28] MEDS ORDERED: CYCLOBENZAPRINE 10MG STARTER 3 TAB BTL PO STA (20:57)
--- NOTE | 2020-03-28 21:00 | ED ---
General Adult HPI - General Chief complaint: Back Pain/Injury Stated complaint: Pain - Fibromyalgia Time Seen by Provider: 03/28/20 20:25 Source: patient Mode of arrival: ambulatory Limitations: no limitations - History of Present Illness Initial comments: 45-year-old female patient of medical history significant for fibromyalgia, degenerative disc disease in her neck, and chronic pain presents to the emergency department today reporting generalized body pain. Patient states that she has started a new job approximately 90 days ago. Patient states she is very busy and walks around 14 miles per day. She states whenever she gets home from work she is an significant discomfort to her joints. States that she comes in today requesting pain medication to help with her symptoms. States that she cannot take the pain any more. She does take neurontin which does not seem to be helping. States that due to her work schedule she is unable to see her primary care physician. She denies any new symptoms today. Denies any injuries. Denies fever, chills, chest pain, shortness of breath, nausea, vomiting, abdominal pain. Denies numbness or tingling to her extremities. Patient denies any recent rash, cough, numbness, tingling, dizziness, weakness, hematuria, dysuria, urinary urgency, urinary frequency, headache, visual changes, or any other complaints. - Related Data Home Medications Medication Instructions Recorded Confirmed Gabapentin [Neurontin] 300 mg PO QID 07/27/18 10/27/18 Albuterol Sulfate [Proair Hfa] 1 - 2 puff INHALATION RT-QID PRN 10/27/18 10/27/18 Escitalopram [Lexapro] 20 mg PO HS 10/27/18 10/27/18 Ipratropium [place] [Atrovent Hfa] 2 puff INHALATION RT-BID 10/27/18 10/27/18 hydrOXYzine pamoate [Vistaril] 50 mg PO QID PRN 10/27/18 10/27/18 Previous Rx's Medication Instructions Recorded Ibuprofen 800 mg PO Q6HR PRN #20 tablet 10/27/18 Cyclobenzaprine [Flexeril] 10 mg PO TID #25 tab 03/28/20 Allergies Allergy/AdvReac Type Severity Reaction Status Date / Time Penicillins Allergy Dyspnea Verified 03/28/20 19:41 Review of Systems ROS Statement: Those systems with pertinent positive or pertinent negative responses have been documented in the HPI. ROS Other: All systems not noted in ROS Statement are negative. Past Medical History Past Medical History: Fibromyalgia, Musculoskeletal Disorder Additional Past Medical History / Comment(s): herniated disc in neck. Less than one month ago pt. had a seizure. depression . etoh free for 90 day 03/28/20 History of Any Multi-Drug Resistant Organisms: None Reported Past Surgical History: Appendectomy, Ear Surgery, Tubal Ligation Past Anesthesia/Blood Transfusion Reactions: No Reported Reaction Past Psychological History: Anxiety, Depression, PTSD Smoking Status: Current every day smoker Past Alcohol Use History: None Reported Past Drug Use History: Marijuana - Past Family History Mother History Unknown: Yes Father History Unknown: Yes Additional Family Medical History / Comment(s): "excess iron" General Exam Limitations: no limitations General appearance: alert, in no apparent distress, other (This is a well- developed, well-nourished adult female patient in no acute distress. Vital signs upon presentation are temperature 98.5F we'll pulse 93, respirations 16, blood pressure 124/75, pulse ox 100% on room air.) Eye exam: Present: normal appearance, PERRL, EOMI. Absent: scleral icterus, conjunctival injection, periorbital swelling Respiratory exam: Present: normal lung sounds bilaterally. Absent: respiratory distress, wheezes, rales, rhonchi, stridor Cardiovascular Exam: Present: regular rate, normal rhythm, normal heart sounds. Absent: systolic murmur, diastolic murmur, rubs, gallop, clicks GI/Abdominal exam: Present: soft, normal bowel sounds. Absent: distended, tenderness, guarding, rebound, rigid Neurological exam: Present: alert, oriented X3, CN II-XII intact, other (Strength in all 4 extremities is 5/5.) Psychiatric exam: Present: normal affect, normal mood Skin exam: Present: warm, dry, intact, normal color. Absent: rash Course Vital Signs 03/28/20 19:37 Temperature 98.5 F Pulse Rate 93 Respiratory 16 Rate Blood Pressure 124/75 O2 Sat by Pulse 100 Oximetry Medical Decision Making - Medical Decision Making 45-year-old female patient presents to the emergency department today for evaluation of generalized body pain. Patient does have fibromyalgia and chronic pain. Has not taken any pain medication today. Physical examination is unremarkable. She denies any new symptoms, states this is chronic but she just couldn't take it any longer. Unable to follow-up with her primary doctor. We did give her dose of pain medication here in the emergency department. Did give her starter pack for home. She'll be discharged. With her primary care physician for recheck in 1-2 days. Return parameters were discussed in detail. She verbalizes understanding and agrees with this plan. Disposition Clinical Impression: Fibromyalgia, Chronic pain Disposition: HOME SELF-CARE Condition: Good Instructions (If sedation given, give patient instructions): Fibromyalgia (ED), Chronic Pain (ED) Additional Instructions: Take medications as directed. Follow up with primary care physician as soon as possible. Return to the emergency department for any new, worsening, or concerning symptoms. Prescriptions: Cyclobenzaprine [Flexeril] 10 mg PO TID #25 tab Is patient prescribed a controlled substance at d/c from ED?: No Referrals: Yogi Zacarias MD [Primary Care Provider] - 1-2 days Time of Disposition: 21:00
== END 2020-03-28 21:22 | disposition home or self-care (01) ==
LOC: EC 19:29
DX: M79.7 Fibromyalgia (principal); G89.29 Other chronic pain; F17.200 Nicotine dependence, unspecified, uncomplicated; F41.9 Anxiety disorder, unspecified; F32.9 Major depressive disorder, single episode, unspecified; Z79.899 Other long term (current) drug therapy; Z88.0 Allergy status to penicillin
CPT/HCPCS: 99283; 96372 ×2; J2270; J1885

== ENCOUNTER → 2020-05-02 | Outpatient (CLI) | payer OTHER | END | disposition home or self-care (01) | LOC: LABWHC1 15:55 | PROVIDERS: ATTEND Family Medicine | DX: Z03.818 Encounter for observation for suspected exposure to other biological agents ruled out (principal) | CPT/HCPCS: U0003; C9803 ==

== ENCOUNTER 2020-06-22 18:12 | Emergency (ER) | payer OTHER ==
[2020-06-22 18:20] VITALS: RESP 18
[2020-06-22 19:36] LABS: Basophils # (A) 0.1 k/uL (0-0.2); Basophils % (A) 1 %; Eosinophils # (A) 0.6 k/uL (0-0.7); Eosinophils % (A) 5 %; HGB 14.9 gm/dL (11.4-16.0); Lymphocytes % (A) 16 %; MCH 33.3 pg (25.0-35.0); MCHC 34.7 g/dL (31.0-37.0); MCV 96.1 fL (80.0-100.0); Mean Platelet Volume 6.7; Monocytes # (A) 0.6 k/uL (0-1.0); Monocytes % (A) 5 %; Neutrophils # (A) 9.1 k/uL (1.3-7.7); Neutrophils % (A) 73 %; Platelet Count 434 k/uL (150-450); RBC 4.48 m/uL (3.80-5.40); RDW 12.5 % (11.5-15.5); WBC 12.5 k/uL (3.8-10.6)
[2020-06-22 20:08] LABS: ALT 11 U/L (4-34); AST 26 U/L (14-36); African American GFR (CKD) >90 (>60 ml/min/1.73 sqM); Albumin 4.1 g/dL (3.5-5.0); Alkaline Phosphatase 46 U/L (38-126); Anion Gap 6 mmol/L; Blood Urea Nitrogen 15 mg/dL (7-17); Calcium 9.3 mg/dL (8.4-10.2); Carbon Dioxide 24 mmol/L (22-30); Chloride 105 mmol/L (98-107); Glucose 120 mg/dL (74-99); Non-African American GFR(CKD) >90 (>60 ml/min/1.73 sqM); Potassium 4.2 mmol/L (3.5-5.1); Sodium 135 mmol/L (137-145); Total Bilirubin 0.4 mg/dL (0.2-1.3)
--- NOTE | 2020-06-22 20:43 | XR ---
EXAMINATION TYPE: XR chest 2V DATE OF EXAM: 06/22/2020 COMPARISON: 10/27/2018. HISTORY: Palpitations. TECHNIQUE: Frontal and lateral views of the chest are obtained. FINDINGS: There is no focal air space opacity, pleural effusion, or pneumothorax seen. The cardiac silhouette size is within normal limits. The osseous structures are intact. IMPRESSION: No acute cardiopulmonary process.
--- NOTE | 2020-06-22 20:51 | ED ---
Recheck HPI - General Chief Complaint: Recheck/Abnormal Lab/Rx Stated Complaint: Uncontrollable Shaking Time Seen by Provider: 06/22/20 18:28 Source: patient Mode of arrival: wheelchair Limitations: no limitations - History of Present Illness Initial Comments: 45-year-old female. History of alcohol abuse recently got out of rehabilitation presents emergency department today for chief complaint of tremors. Patient states her hands and feet have been shaking. Patient states they're not seizures. Patient states that she went through withdrawals when she went into alcohol detox program. Patient states that she still feels like she's withdrawing. Patient denies chest pain stress of breath and leg swelling she denies weakness or sensation deficit she denies paresthesias she denies hallucinations or suicidal homicidal ideations. Patient denies additional complaints and presented to ER for possible withdrawals. NO additional complaints. On Vitrol,new medications injection this past week. - Related Data Home Medications Medication Instructions Recorded Confirmed Gabapentin [Neurontin] 300 mg PO QID 07/27/18 10/27/18 Albuterol Sulfate [Proair Hfa] 1 - 2 puff INHALATION RT-QID PRN 10/27/18 10/27/18 Escitalopram [Lexapro] 20 mg PO HS 10/27/18 10/27/18 Ipratropium [place] [Atrovent Hfa] 2 puff INHALATION RT-BID 10/27/18 10/27/18 hydrOXYzine pamoate [Vistaril] 50 mg PO QID PRN 10/27/18 10/27/18 Previous Rx's Medication Instructions Recorded Ibuprofen 800 mg PO Q6HR PRN #20 tablet 10/27/18 Cyclobenzaprine [Flexeril] 10 mg PO TID #25 tab 03/28/20 Allergies Allergy/AdvReac Type Severity Reaction Status Date / Time Penicillins Allergy Dyspnea Verified 06/22/20 18:20 Review of Systems ROS Statement: Those systems with pertinent positive or pertinent negative responses have been documented in the HPI. ROS Other: All systems not noted in ROS Statement are negative. Past Medical History Past Medical History: Fibromyalgia, Musculoskeletal Disorder Additional Past Medical History / Comment(s): herniated disc in neck. Less than one month ago pt. had a seizure. depression . etoh free for 90 day 03/28/20 History of Any Multi-Drug Resistant Organisms: None Reported Past Surgical History: Appendectomy, Ear Surgery, Tubal Ligation Past Anesthesia/Blood Transfusion Reactions: No Reported Reaction Past Psychological History: Anxiety, Depression, PTSD Smoking Status: Current every day smoker Past Alcohol Use History: Abuse, Daily Past Drug Use History: Marijuana - Past Family History Mother History Unknown: Yes Father History Unknown: Yes Additional Family Medical History / Comment(s): "excess iron" General Exam - General Exam Comments Initial Comments: General: The patient is awake and alert, in no distress Eye: +3 mm pupils are equal, round and reactive to light, extra-ocular movements are intact. No nystagmus. There is normal conjunctiva bilaterally. No signs of icterus. Ears, nose, mouth and throat: There are moist mucous membranes and no oral lesions. Neck: The neck is supple, there is no tenderness or JVD. Cardiovascular: There is a regular rate and rhythm. No murmur, rub or gallop is appreciated. Respiratory: Lungs are clear to auscultation, respirations are non-labored, breath sounds are equal. No wheezes, stridor, rales, or rhonchi. Gastrointestinal: Soft, non-distended, non-tender abdomen without masses or organomegaly noted. There is no rebound or guarding present. No CVA tenderness.= Musculoskeletal: Normal ROM, no tenderness. Strength 5/5 of the UE and LE b/l, gati without ataxia. Sensation intact of the UE and LE b/l. Radial and DP pulses equal bilaterally 2+. Neurological: A&O x 3. CN II-XII intact, There are no obvious motor or sensory deficits. Coordination appears grossly intact. Speech is normal. Ear nose [id number] smooth and coordinated. Skin: Skin is warm and dry and no rashes or lesions are noted. Psychiatric: Cooperative, appropriate mood & affect, normal judgment. Limitations: no limitations Course Vital Signs 06/22/20 06/22/20 18:16 21:23 Temperature 97.5 F L 98.2 F Pulse Rate 92 76 Respiratory 18 18 Rate Blood Pressure 112/74 112/61 O2 Sat by Pulse 98 99 Oximetry Medical Decision Making - Medical Decision Making 45-year-old feel presenting for tremors of the hands and feet. She denies seizures. Patient has no signs of ataxia. No nystagmus. Denies hallucinations. Denies paresthesias. No weakness noted on physical examination. Patient ambulatory. Chest x-ray clear. EKG no acute findings. Electrolytes within acceptable limits. Patient at this time denies any chest pain/SOB or history of it. Discussed case with attending Dr. Marquis who is agreeable to care plan of discharge [facility] PCP f/u. - Lab Data Result diagrams: 06/22/20 19:16 06/22/20 19:16 Lab Results 06/22/20 06/22/20 Range/Units 19:16 19:16 WBC 12.5 H (3.8-10.6) k/uL RBC 4.48 (3.80-5.40) m/uL Hgb 14.9 (11.4-16.0) gm/dL Hct 43.0 (34.0-46.0) % MCV 96.1 (80.0-100.0) fL MCH 33.3 (25.0-35.0) pg MCHC 34.7 (31.0-37.0) g/dL RDW 12.5 (11.5-15.5) % Plt Count 434 (150-450) k/uL MPV 6.7 Neutrophils % 73 % Lymphocytes % 16 % Monocytes % 5 % Eosinophils % 5 % Basophils % 1 % Neutrophils # 9.1 H (1.3-7.7) k/uL Lymphocytes # 2.0 (1.0-4.8) k/uL Monocytes # 0.6 (0-1.0) k/uL Eosinophils # 0.6 (0-0.7) k/uL Basophils # 0.1 (0-0.2) k/uL Sodium 135 L (137-145) mmol/L Potassium 4.2 (3.5-5.1) mmol/L Chloride 105 (98-107) mmol/L Carbon Dioxide 24 (22-30) mmol/L Anion Gap 6 mmol/L BUN 15 (7-17) mg/dL Creatinine 0.62 (0.52-1.04) mg/dL Est GFR (CKD-EPI)AfAm >90 (>60 ml/min/1.73 sqM) Est GFR (CKD-EPI)NonAf >90 (>60 ml/min/1.73 sqM) Glucose 120 H (74-99) mg/dL Calcium 9.3 (8.4-10.2) mg/dL Magnesium 2.0 (1.6-2.3) mg/dL Total Bilirubin 0.4 (0.2-1.3) mg/dL AST 26 (14-36) U/L ALT 11 (4-34) U/L Alkaline Phosphatase 46 (38-126) U/L Total Protein 7.0 (6.3-8.2) g/dL Albumin 4.1 (3.5-5.0) g/dL Disposition Clinical Impression: Tremor Disposition: HOME SELF-CARE Condition: Good Instructions (If sedation given, give patient instructions): Tremors (ED) Additional Instructions: Please use medication as discussed. Please follow-up with family doctor in the next 2 days. Please return to emergency room if the symptoms increase or worsen or for any other concerns. Is patient prescribed a controlled substance at d/c from ED?: No Referrals: Yogi Zacarias MD [Primary Care Provider] - 1-2 days Time of Disposition: 20:51
[2020-06-22 21:25] VITALS: BP 112/61; PULSE 76; TEMP 98.2
== END 2020-06-22 21:25 | disposition home or self-care (01) ==
LOC: EC 18:12
DX: R25.1 Tremor, unspecified (principal); F41.9 Anxiety disorder, unspecified; F32.9 Major depressive disorder, single episode, unspecified; Z79.899 Other long term (current) drug therapy; F17.200 Nicotine dependence, unspecified, uncomplicated; Z88.0 Allergy status to penicillin; Z90.49 Acquired absence of other specified parts of digestive tract
CPT/HCPCS: 36415; 71046; 80053; 83735; 85025; 99285

== ENCOUNTER 2020-07-02 15:02 | Emergency (ER) | payer OTHER ==
[2020-07-02 15:24] VITALS: RESP 18
[2020-07-02] MEDS ORDERED: SODIUM CHLORIDE 0.9% 1,000 ML IV STA (15:55)
--- NOTE | 2020-07-02 15:58 | ED ---
General Adult HPI - General Chief complaint: Psychiatric Symptoms Stated complaint: Sent by PCP Rell Time Seen by Provider: 07/02/20 15:34 Source: patient, RN notes reviewed Mode of arrival: wheelchair Limitations: no limitations - History of Present Illness Initial comments: 45-year-old female with a past medical history of fibromyalgia, chronic alc oholism finished rehab 2 weeks ago, anxiety, PTSD presents to the emergency room for a chief complaint of tremors. Patient reports that ever since she was in rehab about a month ago she started to develop tremors. States they have not stopped. States they seem to worsen with walking. States that she thought she had a seizure earlier this month because her arms and legs went stiff but she was awake for this episode. Clinically is not consistent with seizure disorder. Patient states she has been seeing her primary care provider for this and does have an MRI ordered. Patient also complaining of increased depression. States she has a history of depression and is currently seeing her primary care for this. She does take antidepressants. States there is a lot going on in her life and she is currently living with her pourer. Patient denies suicidal or homicidal thoughts but is requesting to speak with EPS. Patient has no other complaints at this time including shortness of breath, chest pain, abdominal pain, nausea or vomiting, headache, or visual changes. - Related Data Home Medications Medication Instructions Recorded Confirmed Albuterol Sulfate [Proair Hfa] 1 - 2 puff INHALATION RT-QID PRN 10/27/18 07/02/20 Amitriptyline HCl 25 mg PO HS 07/02/20 07/02/20 Butalb/APAP/Caff 50-325-40Mg 1 tab PO Q4H PRN 07/02/20 07/02/20 [Fioricet 50-325-40] Ensure Complete 1 can PO TID 07/02/20 07/02/20 Gabapentin 800 mg PO TID 07/02/20 07/02/20 Hydrocortisone Cream 1 applic TOPICAL QID PRN 07/02/20 07/02/20 [Hydrocortisone 2.5% Cream] LORazepam [Ativan] 0.5 mg PO TID PRN 07/02/20 07/02/20 Naltrexone HCl [Revia] 50 mg PO TID 07/02/20 07/02/20 Thiamine HCl [Vitamin B-1] 100 mg PO DAILY 07/02/20 07/02/20 Venlafaxine HCl [Effexor XR] 75 mg PO BID 07/02/20 07/02/20 busPIRone HCL 15 mg PO TID 07/02/20 07/02/20 hydrOXYzine pamoate [Vistaril] 50 mg PO TID 07/02/20 07/02/20 Allergies Allergy/AdvReac Type Severity Reaction Status Date / Time Penicillins Allergy Dyspnea Verified 07/02/20 16:28 Review of Systems ROS Statement: Those systems with pertinent positive or pertinent negative responses have been documented in the HPI. ROS Other: All systems not noted in ROS Statement are negative. Past Medical History Past Medical History: Fibromyalgia, Musculoskeletal Disorder Additional Past Medical History / Comment(s): herniated disc in neck. Less than one month ago pt. had a seizure. depression . etoh free for 90 day 03/28/20 History of Any Multi-Drug Resistant Organisms: None Reported Past Surgical History: Appendectomy, Ear Surgery, Tubal Ligation Past Anesthesia/Blood Transfusion Reactions: No Reported Reaction Past Psychological History: Anxiety, Depression, PTSD Smoking Status: Current every day smoker Past Alcohol Use History: Abuse, Daily Past Drug Use History: Marijuana - Past Family History Mother History Unknown: Yes Father History Unknown: Yes Additional Family Medical History / Comment(s): "excess iron" General Exam Limitations: no limitations General appearance: alert, in no apparent distress Head exam: Present: atraumatic, normocephalic, normal inspection Eye exam: Present: normal appearance, PERRL, EOMI. Absent: scleral icterus, conjunctival injection, periorbital swelling ENT exam: Present: normal exam, mucous membranes moist Neck exam: Present: normal inspection, full ROM. Absent: tenderness, meningismus, lymphadenopathy Respiratory exam: Present: normal lung sounds bilaterally. Absent: respiratory distress, wheezes, rales, rhonchi, stridor Cardiovascular Exam: Present: regular rate, normal rhythm, normal heart sounds. Absent: systolic murmur, diastolic murmur, rubs, gallop, clicks GI/Abdominal exam: Present: soft, normal bowel sounds. Absent: distended, tenderness, guarding, rebound, rigid Neurological exam: Present: alert, oriented X3, normal gait Course Vital Signs 07/02/20 07/02/20 15:20 18:50 Temperature 98.4 F Pulse Rate 81 71 Respiratory 18 18 Rate Blood Pressure 100/66 121/78 O2 Sat by Pulse 99 99 Oximetry Medical Decision Making - Medical Decision Making Vitals are stable. CBC does show leukocytosis as well as lymphocytosis. Eosinophils are also high. CMP unremarkable. Urinalysis does not show any evid ence of infection. Chest x-ray does not show any evidence of pneumonia which was ordered given patient's leukocytosis. CT brain is negative. Patient does not have any focal neurologic deficits. She is ambulating to and from the bathroom without assistance. At this time patient can continue to follow up with Dr. Gusman for tremors as well as abnormalities on CBC. She was medically cleared at 1755 for EPS. Patient is requesting to speak with him as she is more depressed than normal but is denying suicidal thoughts. EPS did evaluate patient. Patient continues to deny suicidal thoughts. Patient apparently used to follow with [facility]. EPS nurse Fatou was able to contact [facility] and gave her mobile crisis number. At this time EPS does not feel patient is a risk for herself as she is not suicidal. She has follow-up with his [facility] and she has mobile crisis number. She does have a safe place to stay. Patient does prefer this plan. Patient will be discharged home. She will return for any worsening symptoms. - Lab Data Result diagrams: 07/02/20 16:07 07/02/20 16:07 Lab Results 07/02/20 07/02/20 07/02/20 Range/Units 16:07 16:07 16:07 WBC 15.6 H (3.8-10.6) k/uL RBC 4.61 (3.80-5.40) m/uL Hgb 15.3 (11.4-16.0) gm/dL Hct 44.9 (34.0-46.0) % MCV 97.5 (80.0-100.0) fL MCH 33.1 (25.0-35.0) pg MCHC 33.9 (31.0-37.0) g/dL RDW 12.7 (11.5-15.5) % Plt Count 507 H (150-450) k/uL MPV 6.4 Neutrophils % (Manual) 39 % Lymphocytes % (Manual) 31 % Monocytes % (Manual) 5 % Eosinophils % (Manual) 25 % Neutrophils # (Manual) 6.08 (1.3-7.7) k/uL Lymphocytes # (Manual) 4.84 H (1.0-4.8) k/uL Monocytes # (Manual) 0.78 (0-1.0) k/uL Eosinophils # (Manual) 3.90 H (0-0.7) k/uL Nucleated RBCs 0 (0-0) /100 WBC Manual Slide Review Performed Sodium (137-145) mmol/L Potassium (3.5-5.1) mmol/L Chloride (98-107) mmol/L Carbon Dioxide (22-30) mmol/L Anion Gap mmol/L BUN (7-17) mg/dL Creatinine (0.52-1.04) mg/dL Est GFR (CKD-EPI)AfAm (>60 ml/min/1.73 sqM) Est GFR (CKD-EPI)NonAf (>60 ml/min/1.73 sqM) Glucose (74-99) mg/dL Calcium (8.4-10.2) mg/dL Magnesium (1.6-2.3) mg/dL Total Bilirubin (0.2-1.3) mg/dL AST (14-36) U/L ALT (4-34) U/L Alkaline Phosphatase (38-126) U/L Total Protein (6.3-8.2) g/dL Albumin (3.5-5.0) g/dL Urine Color Light Yellow Urine Appearance Cloudy H (Clear) Urine pH 7.0 (5.0-8.0) Ur Specific [place] 1.010 (1.001-1.035) Urine Protein Negative (Negative) Urine Glucose (UA) Negative (Negative) Urine Ketones Negative (Negative) Urine Blood Negative (Negative) Urine Nitrite Negative (Negative) Urine Bilirubin Negative (Negative) Urine Urobilinogen <2.0 (<2.0) mg/dL Ur Leukocyte Esterase Moderate H (Negative) Urine RBC 2 (0-5) /hpf Urine WBC 3 (0-5) /hpf Ur Squamous Epith Cells 9 H (0-4) /hpf Amorphous Sediment Rare H (None) /hpf Urine Bacteria Rare H (None) /hpf Hyaline Casts 1 (0-2) /lpf Urine Mucus Rare H (None) /hpf Urine HCG, Qual Not Detected (Not Detectd) Urine Opiates Screen Not Detected (NotDetected) Ur Oxycodone Screen Not Detected (NotDetected) Urine Methadone Screen Not Detected (NotDetected) Ur Propoxyphene Screen Not Detected (NotDetected) Ur Barbiturates Screen Not Detected (NotDetected) U Tricyclic Antidepress Not Detected (NotDetected) Ur Phencyclidine Scrn Not Detected (NotDetected) Ur Amphetamines Screen Not Detected (NotDetected) U Methamphetamines Scrn Not Detected (NotDetected) U Benzodiazepines Scrn Detected H (NotDetected) Urine Cocaine Screen Not Detected (NotDetected) U Marijuana (THC) Screen Detected H (NotDetected) Serum Alcohol mg/dL 07/02/20 Range/Units 16:07 WBC (3.8-10.6) k/uL RBC (3.80-5.40) m/uL Hgb (11.4-16.0) gm/dL Hct (34.0-46.0) % MCV (80.0-100.0) fL MCH (25.0-35.0) pg MCHC (31.0-37.0) g/dL RDW (11.5-15.5) % Plt Count (150-450) k/uL MPV Neutrophils % (Manual) % Lymphocytes % (Manual) % Monocytes % (Manual) % Eosinophils % (Manual) % Neutrophils # (Manual) (1.3-7.7) k/uL Lymphocytes # (Manual) (1.0-4.8) k/uL Monocytes # (Manual) (0-1.0) k/uL Eosinophils # (Manual) (0-0.7) k/uL Nucleated RBCs (0-0) /100 WBC Manual Slide Review Sodium 139 (137-145) mmol/L Potassium 4.4 (3.5-5.1) mmol/L Chloride 106 (98-107) mmol/L Carbon Dioxide 28 (22-30) mmol/L Anion Gap 5 mmol/L BUN 16 (7-17) mg/dL Creatinine 0.81 (0.52-1.04) mg/dL Est GFR (CKD-EPI)AfAm >90 (>60 ml/min/1.73 sqM) Est GFR (CKD-EPI)NonAf 90 (>60 ml/min/1.73 sqM) Glucose 78 (74-99) mg/dL Calcium 9.7 (8.4-10.2) mg/dL Magnesium 2.2 (1.6-2.3) mg/dL Total Bilirubin 0.3 (0.2-1.3) mg/dL AST 23 (14-36) U/L ALT 16 (4-34) U/L Alkaline Phosphatase 63 (38-126) U/L Total Protein 7.4 (6.3-8.2) g/dL Albumin 4.4 (3.5-5.0) g/dL Urine Color Urine Appearance (Clear) Urine pH (5.0-8.0) Ur Specific [place] (1.001-1.035) Urine Protein (Negative) Urine Glucose (UA) (Negative) Urine Ketones (Negative) Urine Blood (Negative) Urine Nitrite (Negative) Urine Bilirubin (Negative) Urine Urobilinogen (<2.0) mg/dL Ur Leukocyte Esterase (Negative) Urine RBC (0-5) /hpf Urine WBC (0-5) /hpf Ur Squamous Epith Cells (0-4) /hpf Amorphous Sediment (None) /hpf Urine Bacteria (None) /hpf Hyaline Casts (0-2) /lpf Urine Mucus (None) /hpf Urine HCG, Qual (Not Detectd) Urine Opiates Screen (NotDetected) Ur Oxycodone Screen (NotDetected) Urine Methadone Screen (NotDetected) Ur Propoxyphene Screen (NotDetected) Ur Barbiturates Screen (NotDetected) U Tricyclic Antidepress (NotDetected) Ur Phencyclidine Scrn (NotDetected) Ur Amphetamines Screen (NotDetected) U Methamphetamines Scrn (NotDetected) U Benzodiazepines Scrn (NotDetected) Urine Cocaine Screen (NotDetected) U Marijuana (THC) Screen (NotDetected) Serum Alcohol <10 mg/dL Disposition Clinical Impression: Chronic depression, History of tremor Disposition: HOME SELF-CARE Condition: Good Instructions (If sedation given, give patient instructions): Tremors (ED) Additional Instructions: Please continue to follow up with primary care for your tremors and depression. Follow up with [facility] as well. If you have any worsening symptoms return to the emergency room. Is patient prescribed a controlled substance at d/c from ED?: No Referrals: Yogi Zacarias MD [Primary Care Provider] - 1-2 days Time of Disposition: 19:25
[2020-07-02 16:15] LABS: HCT 44.9 % (34.0-46.0); HGB 15.3 gm/dL (11.4-16.0); MCH 33.1 pg (25.0-35.0); MCHC 33.9 g/dL (31.0-37.0); MCV 97.5 fL (80.0-100.0); Mean Platelet Volume 6.4; Platelet Count 507 k/uL (150-450); RBC 4.61 m/uL (3.80-5.40); RDW 12.7 % (11.5-15.5); WBC 15.6 k/uL (3.8-10.6)
[2020-07-02 16:18] LABS: Amorphous Sediment,Urine Rare /hpf; Appearance,Urine Cloudy (Clear); Bacteria,Urine Rare /hpf; Bilirubin,Urine Negative (Negative); Blood,Urine Negative (Negative); Color,Urine Light Yellow; Glucose,Urine (UA) Negative (Negative); Hyaline Casts,Urine 1 /lpf (0-2); Ketones,Urine Negative (Negative); Leukocyte Esterase,Urine Moderate (Negative); Mucus,Urine Rare /hpf; Nitrite,Urine Negative (Negative); Protein,Urine Negative (Negative); RBC,Urine 2 /hpf (0-5); Squamous Epithelial Cell,Urine 9 /hpf (0-4); Urobilinogen,Urine <2.0 mg/dL (<2.0); WBC,Urine 3 /hpf (0-5)
[2020-07-02 16:26] LABS: Amphetamine Screen,Urine Not Detected (NotDetected); Barbiturate Screen,Urine Not Detected (NotDetected); Benzodiazepines Screen,Urine Detected (NotDetected); Cocaine Screen,Urine Not Detected (NotDetected); Methadone Screen, Urine Not Detected (NotDetected); Opiate Screen,Urine Not Detected (NotDetected); Oxycodone Screen, Urine Not Detected (NotDetected); Phencyclidine Screen,Urine Not Detected (NotDetected); Tricyclic Antidepressant,Urine Not Detected (NotDetected); Urn Cannabinoid Scrn Detected (NotDetected)
[2020-07-02 16:27] LABS: ALT 16 U/L (4-34); AST 23 U/L (14-36); African American GFR (CKD) >90 (>60 ml/min/1.73 sqM); Albumin 4.4 g/dL (3.5-5.0); Alcohol <10 mg/dL; Alkaline Phosphatase 63 U/L (38-126); Anion Gap 5 mmol/L; Blood Urea Nitrogen 16 mg/dL (7-17); Calcium 9.7 mg/dL (8.4-10.2); Carbon Dioxide 28 mmol/L (22-30); Chloride 106 mmol/L (98-107); Glucose 78 mg/dL (74-99); Magnesium 2.2 mg/dL (1.6-2.3); Non-African American GFR(CKD) 90 (>60 ml/min/1.73 sqM); Potassium 4.4 mmol/L (3.5-5.1); Sodium 139 mmol/L (137-145); Total Bilirubin 0.3 mg/dL (0.2-1.3); Total Protein 7.4 g/dL (6.3-8.2)
[2020-07-02 16:54] LABS: Lymphocytes # (M) 4.84 k/uL (1.0-4.8); Monocytes # (M) 0.78 k/uL (0-1.0); Neutrophils # (M) 6.08 k/uL (1.3-7.7); Neutrophils % (M) 39 %; Nucleated Red Blood Cells 0 /100 WBC (0-0); Total Cells Counted 100
--- NOTE | 2020-07-02 17:31 | CT ---
EXAMINATION TYPE: CT brain wo con DATE OF EXAM: 07/02/2020 COMPARISON: None HISTORY: Tremors. CT DLP: 1060.4 mGycm Automated exposure control for dose reduction was used. Ventricles and sulci appear normal. There is no mass effect nor midline shift. There is no sign of in tracranial hemorrhage. The calvarium is intact. There is no evidence of cerebral edema. IMPRESSION: Negative unenhanced head CT scan.
--- NOTE | 2020-07-02 17:50 | XR ---
EXAMINATION TYPE: XR chest 2V DATE OF EXAM: 07/02/2020 COMPARISON: 06/22/2020 HISTORY: Palpitations TECHNIQUE: 2 views FINDINGS: Heart and mediastinum are normal. Lungs are clear. Diaphragm is normal. Bony thorax appears normal. The pulmonary vascularity is normal. IMPRESSION: Normal chest. No change.
[2020-07-02 20:15] VITALS: BP 115/68; PULSE 75; TEMP 97.9
== END 2020-07-02 19:55 | disposition home or self-care (01) ==
LOC: EC 15:02
DX: F32.9 Major depressive disorder, single episode, unspecified (principal); R25.1 Tremor, unspecified; D72.829 Elevated white blood cell count, unspecified; D72.820 Lymphocytosis (symptomatic); M79.7 Fibromyalgia; G40.909 Epilepsy, unspecified, not intractable, without status epilepticus; F41.9 Anxiety disorder, unspecified; F43.10 Post-traumatic stress disorder, unspecified; F17.200 Nicotine dependence, unspecified, uncomplicated; Z79.899 Other long term (current) drug therapy; Z88.0 Allergy status to penicillin
CPT/HCPCS: 82075; 36415; 80053; 83735; 85025; 81001; 81025; 80306; 71046; 70450; 99285; 96360; 96361 ×3; G0480; 80320

== ENCOUNTER → 2020-12-20 | Outpatient (CLI) | payer OTHER ==
--- NOTE | 2020-12-23 04:58 | US ---
EXAMINATION TYPE: US thyroid st tissue head/neck DATE OF EXAM: 12/20/2020 COMPARISON: NONE CLINICAL HISTORY: 45-year-old female E04.9 Enlarged thyroid. Patient feels fullness on left neck unde r jawline. TECHNIQUE: Multiple sonographic images of the thyroid gland are obtained. FINDINGS: GLAND SIZE: Right Lobe: 4.5 x 1.3 x 2.1 cm Overall Parenchyma: homogenous Left Lobe: 4.3 x 1.1 x 1.5 cm Overall Parenchyma: homogeneous Isthmus Thickness: 0.3 cm NODULES RIGHT: # of nodules measured on right: 0 LEFT: # of nodules measured on left: 0 ISTHMUS: # of nodules measured in the isthmus: 0 Water Pollution Scientist notes: Patient felt fullness near her left submandibular gland: scanned soft tissue area and a 1.6 x 1.2 x 0.6cm lymph node was present at area of fullness, it had normal fatty hilum IMPRESSION: 1. Normal appearance to the thyroid gland. No discrete nodule. 2. Fullness at the patient's left submandibular space corresponds to a mildly enlarged lymph node romario suring 1.2 cm short axis. Probably reactive. Clinical follow-up recommended to ensure gradual involut ion. If there is any progressive growth noted, the area can be rescanned.
== END | disposition home or self-care (01) ==
LOC: RADUSWWP 16:43
PROVIDERS: ATTEND Family Medicine
DX: E04.9 Nontoxic goiter, unspecified (principal)
CPT/HCPCS: 76536

== ENCOUNTER 2022-01-01 19:32 | Emergency (ER) | payer OTHER ==
[2022-01-01 20:39] VITALS: BP 111/64; PULSE 62; RESP 16; TEMP 98
[2022-01-01] MEDS ORDERED: CYCLOBENZAPRINE 10 MG TAB PO STA (22:10)
[2022-01-01] MEDS ORDERED: HYDROcodone/APAP 7.5-325MG 1 EACH TAB PO ONE (22:10)
--- NOTE | 2022-01-01 22:39 | ED ---
Neck Injury/Pain HPI - General Chief Complaint: Neck Pain/Injury Stated Complaint: Back pain Time Seen by Provider: 01/01/22 21:52 Source: patient, RN notes reviewed Mode of arrival: ambulatory Limitations: no limitations - History of Present Illness Initial Comments: This is a 46-year-old female who presents to the emergency department for pain in the neck and thoracic spine. Patient states that this has been a chronic and ongoing issue for several years, however this got worse over the last few days. Patient states she has been working extra shifts and believes that this exacerbated the problem. She has taken hydrocodone and Flexeril in the past which has improved symptoms. She is getting no relief with Advil and Tylenol at home. States that she is barely able to stand due to all of the pain. Denies any fevers, chills, sore throat, cough, dyspnea, chest pain, palpitations, abdominal pain, nausea, vomiting, diarrhea, or headaches. MD Complaint: neck pain, other (mid back pain) Onset/Timin -: days(s) Consistency: constant Treatments Prior to Arrival: Acetaminophen, Ibuprofen - Related Data Home Medications Medication Instructions Recorded Confirmed Albuterol Sulfate [Proair Hfa] 1 - 2 puff INHALATION RT-QID PRN 10/27/18 07/02/20 Amitriptyline HCl 25 mg PO HS 07/02/20 07/02/20 Butalb/APAP/Caff 50-325-40Mg 1 tab PO Q4H PRN 07/02/20 07/02/20 [Fioricet 50-325-40] Ensure Complete 1 can PO TID 07/02/20 07/02/20 Gabapentin 800 mg PO TID 07/02/20 07/02/20 Hydrocortisone Cream 1 applic TOPICAL QID PRN 07/02/20 07/02/20 [Hydrocortisone 2.5% Cream] LORazepam [Ativan] 0.5 mg PO TID PRN 07/02/20 07/02/20 Naltrexone HCl [Revia] 50 mg PO TID 07/02/20 07/02/20 Thiamine HCl [Vitamin B-1] 100 mg PO DAILY 07/02/20 07/02/20 Venlafaxine HCl [Effexor XR] 75 mg PO BID 07/02/20 07/02/20 busPIRone HCL 15 mg PO TID 07/02/20 07/02/20 hydrOXYzine pamoate [Vistaril] 50 mg PO TID 07/02/20 07/02/20 Previous Rx's Medication Instructions Recorded Cyclobenzaprine [Flexeril] 10 mg PO TID PRN #20 tab 01/01/22 Diclofenac Sodium [Voltaren] 75 mg PO BID PRN #20 tab 01/01/22 HYDROcodone/APAP 5-325MG [Lincoln 1 tab PO Q6HR PRN 3 Days #12 tab 01/01/22 5-325] Allergies Allergy/AdvReac Type Severity Reaction Status Date / Time Penicillins Allergy Dyspnea Verified 01/01/22 20:35 Review of Systems ROS Statement: Those systems with pertinent positive or pertinent negative responses have been documented in the HPI. ROS Other: All systems not noted in ROS Statement are negative. Past Medical History Past Medical History: Fibromyalgia, Musculoskeletal Disorder Additional Past Medical History / Comment(s): herniated disc in neck. Less than one month ago pt. had a seizure. depression . etoh free for 90 day 03/28/20 History of Any Multi-Drug Resistant Organisms: None Reported Past Surgical History: Appendectomy, Ear Surgery, Tubal Ligation Past Anesthesia/Blood Transfusion Reactions: No Reported Reaction Past Psychological History: Anxiety, Depression, PTSD Smoking Status: Current every day smoker Past Alcohol Use History: Abuse, Daily Past Drug Use History: Marijuana - Past Family History Mother History Unknown: Yes Father History Unknown: Yes Additional Family Medical History / Comment(s): "excess iron" General Exam Limitations: no limitations General appearance: alert, in distress Head exam: Present: atraumatic, normocephalic, normal inspection Neck exam: Present: normal inspection. Absent: tenderness, meningismus, lymphadenopathy Respiratory exam: Present: normal lung sounds bilaterally. Absent: respiratory distress, wheezes, rales, rhonchi, stridor Cardiovascular Exam: Present: regular rate, normal rhythm, normal heart sounds. Absent: systolic murmur, diastolic murmur, rubs, gallop, clicks Back exam: Present: normal inspection. Absent: full ROM (secondary to pain), tenderness, CVA tenderness (R), CVA tenderness (L) Neurological exam: Present: alert, oriented X3, CN II-XII intact Psychiatric exam: Present: normal affect, normal mood Skin exam: Present: warm, dry, intact. Absent: rash Course Vital Signs 01/01/22 20:35 Temperature 98.0 F Pulse Rate 62 Respiratory 16 Rate Blood Pressure 111/64 O2 Sat by Pulse 100 Oximetry Medical Decision Making - Medical Decision Making This is a 46-year-old female who presents to the emergency department for pain in the cervical and thoracic spine. X-rays were obtained, revealing no acute changes. Pain was controlled with Lincoln and Flexeril in the emergency department. Will discharge the patient on a short course of Flexeril and Lincoln, advised she follow-up with her primary care physician to discuss ongoing treatment. I did also send a prescription for diclofenac to her pharmacy. Advised she take this or ibuprofen for additional pain relief, however she should not take it with ibuprofen, as it may cause GI upset or problems with her kidneys. Return precautions reviewed in depth, the patient is instructed to return to the emergency department with any new, worsening, or concerning symptoms. Patient verbalized understanding. This case was discussed in detail with the attending ED physician. Presentation, findings, and treatment plan discussed in detail as well. - Radiology Data Radiology results: report reviewed, image reviewed Disposition Clinical Impression: Other and unspecified disc disorder of cervical region, Spondylosis of cervical spine Disposition: HOME SELF-CARE Instructions (If sedation given, give patient instructions): Cervical Strain (ED), Cervical Sprain (ED) Additional Instructions: Return to the emergency department with any new, worsening, or concerning symptoms. Use the Lincoln and Flexeril sparingly, as they can be sedating. I sent a prescription for Diclofenac to the pharmacy, this is an anti- inflammatory, you may take either this or ibuprofen, whichever works better for you. Do not take them together. Follow up with your primary care provider in 1-2 days. Prescriptions: Cyclobenzaprine [Flexeril] 10 mg PO TID PRN #20 tab PRN Reason: Pain HYDROcodone/APAP 5-325MG [Lincoln 5-325] 1 tab PO Q6HR PRN 3 Days #12 tab PRN Reason: Pain Diclofenac Sodium [Voltaren] 75 mg PO BID PRN #20 tab PRN Reason: Pain Is patient prescribed a controlled substance at d/c from ED?: Yes If prescribed controlled substance>3 days was MAPS reviewed?: Prescribed <3 Days Referrals: Yogi Zacarias MD [Primary Care Provider] - 1-2 days
--- NOTE | 2022-01-01 23:13 | XR ---
EXAMINATION TYPE: XR cervical spine comp DATE OF EXAM: 01/01/2022 COMPARISON: 10/27/2018 HISTORY: Pain TECHNIQUE: 5 views FINDINGS: The cervical vertebra show fairly normal alignment. There is a minimal 3 mm retrolisthesis at C5-6. There is disc space narrowing at C5-6 with spurring of the endplates. Atlantoaxial facet tianna nt is normal. There are no cervical ribs. There is uncovertebral spurring and neural foraminal narrow ing at C5-6 bilaterally. IMPRESSION: Spondylosis at C5-6 with neural foraminal narrowing. No fracture.
--- NOTE | 2022-01-01 23:15 | XR ---
EXAMINATION TYPE: XR thoracic spine complete DATE OF EXAM: 01/01/2022 COMPARISON: NONE HISTORY: Pain TECHNIQUE: 3 views FINDINGS: Thoracic vertebra have normal alignment. Normal disc spaces. Posterior elements are intact. There is no paraspinal mass. No compression fracture. IMPRESSION: Negative thoracic spine exam. No fracture seen.
[2022-01-01] MEDS ORDERED: ACET/COD 300 MG/30 MG STARTER PACK 6 TAB BTL PO STA (23:24)
[2022-01-01] MEDS ORDERED: CYCLOBENZAPRINE 10MG STARTER 3 TAB BTL PO STA (23:24)
== END 2022-01-01 23:48 | disposition home or self-care (01) ==
LOC: EC 19:32
DX: M50.80 Other cervical disc disorders, unspecified cervical region (principal); M47.812 Spondylosis without myelopathy or radiculopathy, cervical region; M79.7 Fibromyalgia; F32.A Depression, unspecified; F41.9 Anxiety disorder, unspecified; F17.200 Nicotine dependence, unspecified, uncomplicated; F12.90 Cannabis use, unspecified, uncomplicated; Z79.899 Other long term (current) drug therapy
CPT/HCPCS: 72050; 72072; 99283

== ENCOUNTER 2022-07-14 23:50 | Emergency (ER) | payer OTHER ==
[2022-07-15 00:22] VITALS: BP 124/74; PULSE 81; RESP 20; TEMP 98.2
[2022-07-15] MEDS ORDERED: KETOROLAC 15 MG/ML 1 ML VIAL IM STA (01:36)
[2022-07-15] MEDS ORDERED: ONDANSETRON ODT 4 MG TAB PO STA (01:36)
--- NOTE | 2022-07-15 01:46 | ED ---
General Adult HPI - General Chief complaint: Dental/Oral Stated complaint: Dental pain Time Seen by Provider: 07/15/22 01:21 Source: patient, RN notes reviewed Mode of arrival: ambulatory Limitations: no limitations - History of Present Illness Initial comments: 47-year-old female presents to the emergency Department with complaints of dental pain and left-sided facial swelling. Patient states she has a tooth that scheduled to be removed on July 30, but is having increased pain associated with this tooth. States she was prescribed an antibiotic, though did not take all of it so resumed taking it today. States she took Tylenol before she arrived. Has not been taking medications with food because it was painful to eat and is now nauseous. Denies fever, chills, difficulty swallowing, difficulty breathing, chest pain, and abdominal pain. - Related Data Home Medications Medication Instructions Recorded Confirmed Albuterol Sulfate [Proair Hfa] 1 - 2 puff INHALATION RT-QID PRN 10/27/18 07/02/20 Amitriptyline HCl 25 mg PO HS 07/02/20 07/02/20 Butalb/APAP/Caff 50-325-40Mg 1 tab PO Q4H PRN 07/02/20 07/02/20 [Fioricet 50-325-40] Ensure Complete 1 can PO TID 07/02/20 07/02/20 Gabapentin 800 mg PO TID 07/02/20 07/02/20 Hydrocortisone Cream 1 applic TOPICAL QID PRN 07/02/20 07/02/20 [Hydrocortisone 2.5% Cream] LORazepam [Ativan] 0.5 mg PO TID PRN 07/02/20 07/02/20 Naltrexone HCl [Revia] 50 mg PO TID 07/02/20 07/02/20 Thiamine HCl [Vitamin B-1] 100 mg PO DAILY 07/02/20 07/02/20 Venlafaxine HCl [Effexor XR] 75 mg PO BID 07/02/20 07/02/20 busPIRone HCL 15 mg PO TID 07/02/20 07/02/20 hydrOXYzine pamoate [Vistaril] 50 mg PO TID 07/02/20 07/02/20 Previous Rx's Medication Instructions Recorded Cyclobenzaprine [Flexeril] 10 mg PO TID PRN #20 tab 01/01/22 Diclofenac Sodium [Voltaren] 75 mg PO BID PRN #20 tab 01/01/22 HYDROcodone/APAP 5-325MG [[place] 1 tab PO Q6HR PRN 3 Days #12 tab 01/01/22 5-325] Clindamycin [Cleocin] 450 mg PO Q8H 7 Days #63 capsule 07/15/22 Allergies Allergy/AdvReac Type Severity Reaction Status Date / Time Penicillins Allergy Dyspnea Verified 07/15/22 00:19 Review of Systems ROS Statement: Those systems with pertinent positive or pertinent negative responses have been documented in the HPI. ROS Other: All systems not noted in ROS Statement are negative. Past Medical History Past Medical History: Fibromyalgia, Musculoskeletal Disorder Additional Past Medical History / Comment(s): herniated disc in neck. Less than one month ago pt. had a seizure. depression . etoh free for 90 day 03/28/20 History of Any Multi-Drug Resistant Organisms: None Reported Past Surgical History: Appendectomy, Ear Surgery, Tubal Ligation Past Anesthesia/Blood Transfusion Reactions: No Reported Reaction Past Psychological History: Anxiety, Depression, PTSD Smoking Status: Current every day smoker Past Alcohol Use History: Occasional Past Drug Use History: Marijuana - Past Family History Mother History Unknown: Yes Father History Unknown: Yes Additional Family Medical History / Comment(s): "excess iron" General Exam Limitations: no limitations General appearance: alert, in no apparent distress Eye exam: Present: normal appearance, PERRL, EOMI. Absent: scleral icterus, conjunctival injection, periorbital swelling ENT exam: Present: other (rt TM reconstructed; lt TM pearly dow, nonbulging). Absent: normal exam (mild swelling left lower jaw extending toward left ear; no localized abscess. swelling does not extend below the mandible.) Expanded Mouth exam: Present: tongue normal. Absent: trismus Teeth exam: Present: dental caries, dental tenderness #, gingival enlargement, other (tooth #18 decayed with surrounding gingival enlargement) Throat exam: normal inspection Neck exam: Absent: lymphadenopathy Respiratory exam: Present: normal lung sounds bilaterally. Absent: respiratory distress, wheezes, rales, rhonchi, stridor Cardiovascular Exam: Present: regular rate, normal rhythm, normal heart sounds. Absent: systolic murmur, diastolic murmur, rubs, gallop, clicks Neurological exam: Present: alert, oriented X3 Psychiatric exam: Present: anxious Course Vital Signs 07/15/22 00:19 Temperature 98.2 F Pulse Rate 81 Respiratory 20 Rate Blood Pressure 124/74 O2 Sat by Pulse 100 Oximetry Medical Decision Making - Medical Decision Making 47-year-old female presents to the emergency Department with complaints of dental pain. Upon exam, patient is well-appearing, though quite uncomfortable. She has mild swelling along the left lower jawline, but does not extend into the submandibular space. No trismus. Patient is given Toradol and Zofran with improvement. Prescribed clindamycin and instructed to call her dentist in the morning. Discharged with a Tylenol No. 3 starter pack. Return parameters were discussed in detail. Patient verbalizes understanding and agrees with this plan. Attending: Sania Was pt. sent in by a medical professional or institution? @ -No Did you speak to anyone other than the patient for history? @ -No Did you review nursing and triage notes? @ -Yes, agree Were old charts reviewed? @ -No Differential Diagnosis? @ -Dental pain, dental caries, Toño angina, peritonsillar abscess, periapical abscess, this is not meant to be an exhaustive list EKG interpreted by me (3pts min.)? @ -Not applicable X-rays interpreted by me (1pt min.)? @ -Not applicable CT interpreted by me (1pt min.)? @ -Not applicable U/S interpreted by me (1pt. min.)? @ -Not applicable What testing was considered but not performed? (CT, X-rays, U/S, labs)? Why? @ None What meds were considered but not given? Why? @ -Considered antibiotic in ED, however patient took a dose prior to arrival. Did you discuss the management of the patient with other professionals? @ -None Did you reconcile home meds? @ -No Was smoking cessation discussed for >3mins.? @ -No Was critical care preformed (if so, how long)? @ -No Were there social determinants of health that impacted care today? How? (Homelessness, low income, unemployed, alcoholism, drug addiction, transportation, low edu. Level, literacy, decrease access to med. care, longterm, rehab)? @ -No Was there de-escalation of care discussed even if they declined? (Discuss DNR or withdrawal of care, Hospice)? @ -No What co-morbidities impacted this encounter? (DM, HTN, Smoking, COPD, CAD, Cancer, CVA, Hep., AIDS, mental health diagnosis, sleep apnea, morbid obesity)? @No Was patient admitted / discharged? @ -Discharged Undiagnosed new problem with uncertain prognosis? @ -None Drug Therapy requiring intensive monitoring for toxicity (Heparin, Nitro, Insulin, Cardizem)? @ -None Were any procedures done? @ -None Diagnosis/symptom? @ -Dental infection Acute, or Chronic, or Acute on Chronic? @ -Acute Uncomplicated (without systemic symptoms) or Complicated (systemic symptoms)? @ -Uncomplicated Side effects of treatment? @ -None Exacerbation, Progression, or Severe Exacerbation] @ -No Poses a threat to life or bodily function? @ -No Disposition Clinical Impression: Dental infection Disposition: HOME SELF-CARE Condition: Stable Instructions (If sedation given, give patient instructions): Toothache (ED) Additional Instructions: You must take antibiotic with food. Very important to take antibiotic as prescribed for the full duration. You are being prescribed a starter pack of Tylenol with Codeine. This may make your groggy so do not take it if you are driving. Do not take it with additional doses of Tylenol. Keep your scheduled appointment with your dentist but call the office in the morning to see if you can be seen sooner. Return to the emergency department with any new, worsening, or concerning symptoms. Prescriptions: Clindamycin [Cleocin] 450 mg PO Q8H 7 Days #63 capsule Is patient prescribed a controlled substance at d/c from ED?: No Referrals: Yogi Zacarias MD [Primary Care Provider] - 1-2 days Time of Disposition: 01:51
[2022-07-15] MEDS ORDERED: ACET/COD 300 MG/30 MG STARTER PACK 6 TAB BTL PO STA (01:47)
== END 2022-07-15 02:02 | disposition home or self-care (01) ==
LOC: EC 23:50
DX: K04.7 Periapical abscess without sinus (principal); F41.9 Anxiety disorder, unspecified; F32.A Depression, unspecified; F17.200 Nicotine dependence, unspecified, uncomplicated; F12.90 Cannabis use, unspecified, uncomplicated; Z88.0 Allergy status to penicillin
CPT/HCPCS: 99282; 96372; J1885

== ENCOUNTER → 2024-01-15 | Outpatient (CLI) | payer OTHER ==
--- NOTE | 2024-01-15 19:11 | MR ---
EXAMINATION TYPE: MR brain/cspine wo DATE OF EXAM: 01/15/2024 10:09 AM CLINICAL INDICATION:Female, 48 years old with history of G25.0 ESSENTIAL TREMOR M50.30 OTHER CERVICAL DISC; PHH, Neck pain, decreased range of motion in neck, multiple head injuries COMPARISON: . 11/20/2014. 10/31/2009 TECHNIQUE: Multi planar, multi sequence imaging was performed through the brain including: T1, T2, Inversion rec overy, Diffusion weighted imaging, and gradient echo imaging. No gadolinium was given. Multi planar, multi sequence imaging was performed utilizing: T1-weighted, T2-weighted, and turbo inv ersion recovery imaging of the cervical spine. IV Contrast: cc none FINDINGS: The ingram-white junctions, ventricular system, basal cisterns appear unremarkable. . Midline structure s show no abnormality. Diffusion-weighted imaging shows no evidence of restricted diffusion. The susc eptibility weighted images do not reveal any evidence for micro-hemorrhage. Limited evaluation for wh ite matter changes on FLAIR imaging due to motion. Susceptibility blooming artifact in the right yanni etal lobe possibly vascular malformation. No susceptibility weighted imaging sequences were performed on prior exam. There was blush of enhancement on 10/31/2009 exam. The bone marrow signal is within normal limits. Paranasal sinuses and mastoid air cells: No significant paranasal sinus disease. Visualized orbits: Orbital contents are intact. Alignment: The cervical vertebral bodies have preserved heights. Alignment is within normal limits gi mariann patient positioning. Bones: Scattered Modic endplate changes with osteophytes and disc space narrowing. Multilevel degener ative disc disease is noted and most pronounced at the C4-C6 vertebral levels. Cord: The spinal cord is unremarkable with regards to their signal intensity and morphology. Discs: Multilevel disc desiccation is present. C2-C3: No significant disc pathology. The spinal canal is patent. No neural foraminal stenosis. C3-C4: No significant disc pathology. The spinal canal is patent. No neural foraminal stenosis. C4-C5: No significant disc pathology. The spinal canal is patent. Bilateral facet and uncovertebral joint arthropathy are present with mild bilateral neural foraminal stenosis. C5-C6: No significant disc pathology. The spinal canal is patent. Bilateral facet and uncovertebral joint arthropathy are present with moderate to severe right and mild to moderate left neural foramina l stenosis. C6-C7: No significant disc pathology. The spinal canal is patent. Bilateral facet and uncovertebral joint arthropathy are present with mild to moderate bilateral neural foraminal stenosis. C7-T1: No significant disc pathology. The spinal canal is patent. No neural foraminal stenosis. Other: None. IMPRESSION: 1. No evidence for disc herniation or significant spinal canal stenosis. 2. Mild disc degeneration with associated osteoarthritic changes. No foraminal stenosis worse at C5- C6 with moderate to severe right and mild to moderate left stenosis. 3. No evidence of intracranial mass or acute/subacute infarct. 4. Susceptibility blooming artifact in the right parietal lobe possibly vascular malformation. This had mild amount of enhancement present on 10/31/2009 examination.
== END | disposition home or self-care (01) ==
LOC: RADMRIMAIN 09:01
PROVIDERS: ATTEND Psychiatry & Neurology Neurology
DX: M47.812 Spondylosis without myelopathy or radiculopathy, cervical region (principal); M50.321 Other cervical disc degeneration at C4-C5 level; G25.0 Essential tremor
CPT/HCPCS: 70551; 72141

== ENCOUNTER 2024-02-27 05:19 | Emergency (ER) | payer OTHER ==
[2024-02-27] MEDS ORDERED: SODIUM CHLORIDE 0.9% 1,000 ML BAG ONE (06:25)
[2024-02-27] MEDS ORDERED: MORPHINE SULFATE 4 MG/ML SYRINGE ONE (06:27)
[2024-02-27] MEDS ORDERED: DIPH,PERTUS(ACELL)TETVAC-LF 0.5 ML VIAL IM ONE (07:38)
[2024-02-27] MEDS ORDERED: HYDROmorphone 1 MG/ML 1 ML SYRINGE ONE (07:38)
[2024-02-27] MEDS ORDERED: PROPOFOL 10 MG/ML 20 ML VIAL IV ONE (18:01)
--- NOTE | 2024-03-28 07:34 | CT ---
Patient Cony Carey ID [id number] Order # EXAMINATION TYPE: CT ChestAbdPelvis w con DATE OF EXAM: 02/27/2024 INDICATION: Found down unknown injury, pain in pelvis COMPARISON: No comparison available on downtime PACS. CT DLP: 2388.6 mGycm CONTRAST: Isovue 300 TECHNIQUE: Axial images at 5 mm thick sections. Reconstructed images in the coronal plane. Delayed images through the kidneys. FINDINGS: CT CHEST: Portion of the thyroid visualized is normal. No suspicious lung nodules or focal infiltrates are present. No pneumothorax is evident. No enlarged mediastinal or hilar adenopathy is evident. The ascending aorta diameter at the level of the main pulmonary artery is 3.4 cm. The main pulmonary artery diameter at the bifurcation is 2.[address] ABDOMEN: Liver: Normal Spleen: Normal Pancreas: Normal Adrenal glands: The adrenal glands are normal. Gallbladder: Normal Kidneys: No masses are evident. No hydronephrosis is present. No cysts are present. Delayed images were obtained through the kidneys, which remain unremarkable. Aorta: Normal Inferior vena cava: Normal. CT PELVIS: Loops of bowel within the abdomen and pelvis are normal. This study is performed without oral con trast limiting bowel evaluation. Appendix: Normal as visualized. Urinary bladder: Normal. Genitourinary structures: Uterus is normal. Adnexa are normal. A small subcentimeter cyst may be pres ent right ovary Osseous structures: Pelvic fractures evident. This includes the medial pubic ramus. Small chip is po sterior right pubic symphysis. Comminuted fractures through the right acetabulum anterior and posteri or columns and the medial wall of the acetabulum. There is hemorrhage adjacent to the acetabular frac ture and sclerosis of the pelvic contents slightly laterally. The right femoral head and neck appear intact. Additional pelvic fractures not identified. Sacroiliac joints are patent. Ribs appear intact. Vertebral body heights are preserved. IMPRESSION: 1. Comminuted fracture right acetabulum. Adjacent hemorrhage is present. 2. Fracture of the right pubic symphysis and medial ramus. 3. No additional acute posttraumatic changes evident.
--- NOTE | 2024-03-31 10:32 | XR ---
Patient Cony Carey ID [id number] Order # EXAMINATION TYPE: XR chest 1V DATE OF EXAM: 02/27/2024 COMPARISON: No comparison available on downtime PACS. INDICATION: Found down: Trauma TECHNIQUE: Single frontal view of the chest is obtained. FINDINGS: The heart size is normal. The pulmonary vasculature is normal. The lungs are clear. No displaced rib fractures identified. No pneumothorax evident. Mediastinum appears within normal langley its. IMPRESSION: 1. No acute pulmonary process.
--- NOTE | 2024-03-31 10:33 | XR ---
Patient Cony Carey ID [id number] Order # EXAMINATION TYPE: XR pelvis AP view DATE OF EXAM: 02/27/2024 COMPARISON: No comparison available on downtime PACS. HISTORY: Found down, trauma TECHNIQUE: PA pelvis FINDINGS: Subtle fractures at the acetabulum and symphysis pubis on the right are present. Chest and pelvis dictation same date. No additional fractures are identified. Bowel gas appears normal. Femoral heads articulate with the a cetabulum. IMPRESSION: 1. Fractures of the right pubic symphysis and right acetabulum
--- NOTE | 2024-04-07 14:23 | CT ---
EXAM: CT Head Without Intravenous Contrast CLINICAL HISTORY: Possible unknown trauma. Found down and altered. Answering questions properly in er. Bruising on body and sore all over. Pain near rt groin area TECHNIQUE: Axial computed tomography images of the head/brain without intravenous contrast. CTDI is 45.3 mGy and DLP is 1118.7 mGy-cm. This CT exam was performed using one or more of the following dose reduction techniques: automated exposure control, adjustment of the mA and/or kV according to patient size, and/or use of iterative reconstruction technique. COMPARISON: No relevant prior studies available. FINDINGS: Brain: Small left frontal extra-axial calcification maybe small meningioma or osteoma. No hemorrhage. Ventricles:Unremarkable. No ventriculomegaly. Bones/joints: See above. Soft tissues:Unremarkable. Sinuses:Unremarkable as visualized. No acute sinusitis. Mastoid air cells:Unremarkable as visualized. No mastoid effusion. IMPRESSION: No acute findings in the head/brain. EXAM: CT Cervical Spine Without Intravenous Contrast CLINICAL HISTORY: Possible unknown trauma. Found down and altered. Answering questions properly in er. Bruising on body and sore all over. Pain near rt groin area TECHNIQUE: Axial computed tomography images of the cervical spine without intravenous contrast. CTDI is 8.2 mGy and DLP is 207.9 mGy-cm. This CT exam was performed using one or more of the following dose reduction techniques: automated exposure control, adjustment of the mA and/or kV according to patient size, and/or use of iterative reconstruction technique. COMPARISON: No relevant prior studies available. FINDINGS: Vertebrae:Unremarkable. No acute fracture. Discs/spinal canal/neural foramina:Degenerative changes of the mid cervical spine. Moderate central canal and severe right foraminal stenosis at C5-6. Soft tissues:Unremarkable. Lung apices:Biapical blebs. IMPRESSION: No acute findings in the cervical spine. Radiologist: Aminata Simeon M.D. Electronically Signed: 02/27/24 06:34 Study ready at 06:17 and initial results transmitted at 06:34 [facility]
== END 2024-02-27 07:55 | disposition short-term general hospital (02) ==
LOC: EC 05:19
CPT/HCPCS: 70450; 71045; 71260; 72125; 72170; 74177; 90715; 93005; 99285

== ENCOUNTER 2024-07-14 14:48 | Emergency (ER) | payer OTHER ==
--- NOTE | 2024-07-14 15:24 | ED ---
Upper Extremity HPI <Karyna Arellano - Last Filed: 07/14/24 15:24> <Sav Mario - Last Filed: 07/14/24 22:57> - General Stated Complaint: R shoulder pain Time Seen by Provider: 07/14/24 15:22 - History of Present Illness Initial Comments: Quick [id number] female presenting with right shoulder pain x 5 months. States she had an injury where she fell down the stairs 5 months ago and sustained severe injury to the pelvis. Patient believes her right shoulder may have been overlooked at this time as she has had continued pain and difficulty lifting right arm above shoulder since the injury. States she is undergoing physical therapy and her physical therapist told her she has a rotator cuff tear of right shoulder. Denies any new symptoms or acute injury. (Karyna Arellano) Patient is a 49-year-old female with known history of pelvis 6 years as well as a history of a three-story fall resulting in multiple injuries. She presents emergency department complaining of worsening right shoulder pain and think she may have an injured rotator cuff. Thinks this was from the initial fall however due to all of her other injuries, this was overlooked. Has not followed up with an orthopedic for this. States symptoms have been ongoing for multiple months. Has pain with any movement of the right shoulder. Is on oxycodone at home. Said to come the emergency department for further evaluation. Surgeon was out of [facility]. Is not familiar with any orthopedic surgeons in our facility. Patient originally seen as a quick note, and I evaluate the patient when I placed her in a hallway bed 26. (Sav Mario) - Related Data Home Medications Medication Instructions Recorded Confirmed Albuterol Sulfate [Proair Hfa] 1 - 2 puff INHALATION RT-QID PRN 10/27/18 07/02/20 Amitriptyline HCl 25 mg PO HS 07/02/20 07/02/20 Butalb/APAP/Caff 50-325-40Mg 1 tab PO Q4H PRN 07/02/20 07/02/20 [Fioricet 50-325-40] Ensure Complete 1 can PO TID 07/02/20 07/02/20 Gabapentin 800 mg PO TID 07/02/20 07/02/20 Hydrocortisone Cream 1 applic TOPICAL QID PRN 07/02/20 07/02/20 [Hydrocortisone 2.5% Cream] LORazepam [Ativan] 0.5 mg PO TID PRN 07/02/20 07/02/20 Naltrexone HCl [Revia] 50 mg PO TID 07/02/20 07/02/20 Thiamine HCl [Vitamin B-1] 100 mg PO DAILY 07/02/20 07/02/20 Venlafaxine HCl [Effexor XR] 75 mg PO BID 07/02/20 07/02/20 busPIRone HCL 15 mg PO TID 07/02/20 07/02/20 hydrOXYzine pamoate [Vistaril] 50 mg PO TID 07/02/20 07/02/20 Previous Rx's Medication Instructions Recorded Cyclobenzaprine [Flexeril] 10 mg PO TID PRN #20 tab 01/01/22 Diclofenac Sodium [Voltaren] 75 mg PO BID PRN #20 tab 01/01/22 HYDROcodone/APAP 5-325MG [[place] 1 tab PO Q6HR PRN 3 Days #12 tab 01/01/22 5-325] Clindamycin [Cleocin] 450 mg PO Q8H 7 Days #63 capsule 07/15/22 Allergies Allergy/AdvReac Type Severity Reaction Status Date / Time Penicillins Allergy Dyspnea Verified 07/14/24 15:21 Review of Systems ROS Other: All systems not noted in ROS Statement are negative. <Karyna Arellano - Last Filed: 07/14/24 15:24> ROS Other: All systems not noted in ROS Statement are negative. <Sva Mario - Last Filed: 07/14/24 22:57> ROS Statement: Those systems with pertinent positive or pertinent negative responses have been documented in the HPI. Review of Systems: CONST: Denies fever EYES: Denies blurry vision ENT: Denies nasal congestion C/V: Denies Chest pain RESP: Denies shortness of breath GI: Denies abdominal pain : Denies dysuria SKIN: Denies rash. MSK: Endorses right shoulder pain NEURO: Denies headache (Sav Mario) Past Medical History Past Medical History: Fibromyalgia, Musculoskeletal Disorder Additional Past Medical History / Comment(s): herniated disc in neck. Less than one month ago pt. had a seizure. depression . etoh free for 90 day 03/28/20 History of Any Multi-Drug Resistant Organisms: None Reported Past Surgical History: Appendectomy, Ear Surgery, Tubal Ligation Past Anesthesia/Blood Transfusion Reactions: No Reported Reaction Past Psychological History: Anxiety, Depression, PTSD Smoking Status: Current every day smoker Past Alcohol Use History: Occasional Past Drug Use History: Marijuana - Past Family History Mother History Unknown: Yes Father History Unknown: Yes Additional Family Medical History / Comment(s): "excess iron" <Karyna Arellano - Last Filed: 07/14/24 15:24> General Exam <Karyna Arellano - Last Filed: 07/14/24 15:24> <Sav Mario - Last Filed: 07/14/24 22:57> - General Exam Comments Initial Comments: Visual Physical Exam General: Well-appearing, nontoxic, no acute distress. Head: Normocephalic, atraumatic Eyes: PERRLA, EOMI ENT: Airway patent Chest: Nonlabored breathing Skin: No visual rash, normal skin tone Neuro: Alert and oriented 3 Musculoskeletal: No gross abnormalities (Karyna Arellano) General: Appears in mild distress secondary to shoulder pain as well as other body aches. HEAD: Normal with no signs of head trauma. EYES: EOMI. ENT: Hearing grossly intact. RESPIRATORY: No respiratory distress. C/V: Regular rate and rhythm. ABD: Abdomen is nondistended. EXT: No obvious deformity. Decreased range of motion of the right shoulder secondary to pain, especially with any movement over 90 degrees. Neurovascular intact throughout. No significant deformity present. SKIN: No rashes or lesions observed on exposed skin. NEURO: Alert and oriented. (Sav Mario) Course Vital Signs 07/14/24 07/14/24 15:21 17:25 Temperature 98 F 98.6 F Pulse Rate 102 H 86 Respiratory 18 102 H Rate Blood Pressure 119/65 102/69 O2 Sat by Pulse 99 98 Oximetry Medical Decision Making <Karyna Arellano - Last Filed: 07/14/24 15:24> <Sav Mario - Last Filed: 07/14/24 22:57> - Medical Decision Making I completed the quick note portion of this chart signed Karyna Arellano PA-C (Karyna Arellano) Was pt. sent in by a medical professional or institution (, PA, PARACHUTE MANU[employer]CTURING SUPERVISOR, urgent care, hospital, or jail...) When possible be specific @ -No Did you speak to anyone other than the patient for history (EMS, parent, family, police, friend...)? What history was obtained from this source @ -No Did you review nursing and triage notes (agree or disagree)? Why? @ -I reviewed and agree with nursing and triage notes Were old charts reviewed (outside hosp., previous admission, EMS record, old EKG, old radiological studies, urgent care reports/EKG's, jail records)? Report findings @ -No old charts were reviewed Differential Diagnosis (chest pain, altered mental status, abdominal pain women, abdominal pain men, vaginal bleeding, weakness, fever, dyspnea, syncope, headache, dizziness, GI bleed, back pain, seizure, CVA, palpatations, mental health, musculoskeletal)? @ -Differential Musculoskeletal Muscular strain, contusion, ligament sprain, fracture, arthritis, septic arthritis, bursitis, cellulitis, muscle spasm, nerve compression, DVT, arterial occlusion, herpes zoster, electrolyte abnormality, tumor.... This is not meant to be in all inclusive list EKG interpreted by me (3pts min.). @ -None done X-rays interpreted by me (1pt min.). @ -Shoulder x-ray reveals no obvious acute traumatic injury. CT interpreted by me (1pt min.). @ -None done U/S interpreted by me (1pt. min.). @ -None done What testing was considered but not performed or refused? (CT, X-rays, U/S, labs)? Why? @ -None What meds were considered but not given or refused? Why? @ -None Did you discuss the management of the patient with other professionals (professionals i.e. , PA, [employer]URING SUPERVISOR, lab, RT, psych nurse, social work manager, vision therapist, teacher, founder and chief executive officer, transplant case manager)? Give summary @ -No Was smoking cessation discussed for >3mins.? @ -No Was critical care preformed (if so, how long)? @ -No Were there social determinants of health that impacted care today? How? (Homelessness, low income, unemployed, alcoholism, drug addiction, transportation, low edu. Level, literacy, decrease access to med. care, fpc, rehab)? @ -No Was there de-escalation of care discussed even if they declined (Discuss DNR or withdrawal of care, Hospice)? DNR status @ -No What co-morbidities impacted this encounter? (DM, HTN, Smoking, COPD, CAD, Cancer, CVA, ARF, Chemo, Hep., AIDS, mental health diagnosis, sleep apnea, morbid obesity)? @ -None Was patient admitted / discharged? Hospital course, mention meds given and route, prescriptions, significant lab abnormalities, going to OR and other pertinent info. @ -Based on patient's presentation and physical exam, presents emergency depa rtment for evaluation of what appears to be somewhat chronic right shoulder pain. X-ray obtained in triage and showed no obvious acute injury. Injury occurred from prior fall 5 months ago when she injured her pelvis as well as multiple other areas at that time. He has not followed up with an orthopedic surgeon for her right shoulder. Recommended follow-up with orthopedics. We discussed her x-ray findings. Recommended she continue use of home pain meds. She is asking for a starter pack of Tylenol 3 which she will be provided. Remainder the workup unremarkable. Vital signs within acceptable limits. She will be discharged home at this time. I instructed the patient to follow up with their PCP in the next 1-3 days. I provided contact information for follow up with Dr. Haque. I explained that the patient should return to the emergency department if they experience any worsening symptoms. Strict return precautions were discussed with the patient. The patient expressed understanding of these instructions. I answered all questions that the patient had. The patient was discharged home in good condition with their prescriptions and follow up information. Undiagnosed new problem with uncertain prognosis? @ -No Drug Therapy requiring intensive monitoring for toxicity (Heparin, Nitro, Insulin, Cardizem)? @ -No Were any procedures done? @ -No Diagnosis/symptom? @ -Right shoulder strain Acute, or Chronic, or Acute on Chronic? @ -Chronic Uncomplicated (without systemic symptoms) or Complicated (systemic symptoms)? @ -Uncomplicated Side effects of treatment? @ -No Exacerbation, Progression, or Severe Exacerbation? @ -No Poses a threat to life or bodily function? How? (Chest pain, [place], [place], pneumonia, PE, COPD, DKA, ARF, appy, cholecystitis, CVA, Diverticulitis, Homicidal, Suicidal, threat to staff... and all critical care pts) @ -Unlikely (Sav Mario) Disposition <Karyna Arellano - Last Filed: 07/14/24 15:24> Is patient prescribed a controlled substance at d/c from ED?: Yes When asked, does pt state using other controlled substances?: Yes If prescribed controlled substance>3 days was MAPS reviewed?: Prescribed <3 Days If opioid is for acute pain is fill amount 7 days or less?: Yes If Rx opioid, was Start Talking consent form obtained?: Yes Time of Disposition: 17:00 <Sav Mario - Last Filed: 07/14/24 22:57> Clinical Impression: Right shoulder strain Disposition: HOME SELF-CARE Condition: Good Instructions (If sedation given, give patient instructions): Rotator Cuff Injury (ED) Additional Instructions: Suspected right rotator cuff injury of the right shoulder. X-ray here in the department today unremarkable however he may need further testing including possible outpatient MRI or ultrasound which we cannot obtain here in the emergency department. Follow-up with orthopedic surgery. Provided is the contact information for orthopedic surgery on-call. They can assist you with additional testing to evaluate the rotator cuff. PCP in the next 1 to 3 days. Referrals: Yogi Zacarias MD [Primary Care Provider] - 1-2 days Shabbir Haque DO [Doctor of Osteopathic Medicine] - 1-2 days
--- NOTE | 2024-07-14 15:45 | XR ---
EXAMINATION TYPE: XR shoulder complete RT DATE OF EXAM: 07/14/2024 3:34 PM COMPARISON: None CLINICAL INDICATION: Female, 49 years old with history of Right shoulder pain; PHH, pain TECHNIQUE: XR shoulder complete RT; examined in AP, internally rotated and scapular Y projections. FINDINGS: No evidence of acute osseous pathology, joint dislocation, or soft tissue swelling. The remaining po rtions of the visualized chest are unremarkable. IMPRESSION: No acute osseous pathology. [facility], , 07/14/2024 3:43 PM
[2024-07-14] MEDS: Acetaminophen-Codeine 300-30mg TAB PO STA (17:29)
[2024-07-14] MEDS: ACET/COD 300 MG/30 MG STARTER PACK 6 TAB BTL PO STA (17:29)
[2024-07-14 18:18] VITALS: BP 102/69; PULSE 86; RESP 102; TEMP 98.6
== END 2024-07-14 17:30 | disposition home or self-care (01) ==
LOC: EC 14:48
DX: S46.011A Strain of muscle(s) and tendon(s) of the rotator cuff of right shoulder, initial encounter (principal); F17.200 Nicotine dependence, unspecified, uncomplicated; Z88.0 Allergy status to penicillin; W10.9XXA Fall (on) (from) unspecified stairs and steps, initial encounter
CPT/HCPCS: 99283

== ENCOUNTER → 2024-08-12 | Outpatient (CLI) | payer OTHER ==
--- NOTE | 2024-08-14 07:27 | MR ---
EXAMINATION TYPE: MR shoulder RT wo con DATE OF EXAM: 08/12/2024 9:26 AM COMPARISON: Right shoulder x-ray July 14, 2024 CLINICAL INDICATION: Female, 49 years old with history of T14.90XA INJURY, UNSPECIFIED, INITIAL ENCOU NTER, Right shoulder pain, decreased ROM, injured in 3 story fall 02-24-24. IV Contrast: cc (None if empty) TECHNIQUE: Multiplanar, multisequence imaging of the right shoulder is performed without contrast. FINDINGS: Rotator Cuff: Intact supraspinatus and infraspinatus tendons. Intact subscapularis tendon. Rotator cu ff muscle bulk is preserved. Acromioclavicular Joint: Mild to moderate capsular hypertrophy. No significant spurring. Underlying f at plane is maintained. Glenohumeral Joint: Small to moderate size joint effusion. No significant spurring. Labrum: Some heterogeneous increased T2 signal suspicious for tear coronal image 13 for reference. Biceps Tendon: The long head of biceps is in normal location within bicipital groove. Bone marrow signal: Heterogeneity suspicious for red marrow reconversion. No suspicious focal osseous edema.. Other: No additional significant abnormality is appreciated. IMPRESSION: Superior labral tear is felt present. No rotator cuff tear. Mild to moderate tricompartment degenerat harper changes are noted as detailed above. [facility], , 08/14/2024 7:25 AM
== END | disposition home or self-care (01) ==
LOC: RADMRIMAIN 08:48
PROVIDERS: ATTEND Family Medicine
DX: T14.90XA Injury, unspecified, initial encounter (principal); S43.432A Superior glenoid labrum lesion of left shoulder, initial encounter; M19.011 Primary osteoarthritis, right shoulder

== ENCOUNTER → 2024-11-06 | Outpatient (CLI) | payer OTHER ==
--- NOTE | 2024-11-06 20:02 | MR ---
EXAMINATION TYPE: MR brain wo/w con DATE OF EXAM: 11/06/2024 9:54 AM COMPARISON: CT abdomen pelvis most recent from CLINICAL INDICATION: Female, 49 years old with history of Z87.820 HX TRAUM BRAIN INJURY Q27.30 AVM, B lood Vessel starting to curl IV Contrast: 7ml cc Gadobutrol (None if empty) TECHNIQUE: Multiplanar, multisequence images of the brain and brainstem were acquired before and aft er administration of 7ml mL IV Gadobutrol. Diffusion weighted imaging is performed. FINDINGS: No evidence for acute infarction, hemorrhage, mass, mass effect, midline shift, herniation, effacemen t of basal cisterns, or extra-axial fluid collection. The ventricles and sulci are age-appropriate. Major intracranial flow voids are intact. T2/FLAIR weighted sequences show very subtle increased signal subcortical right parietal lobe. This s hows corresponding 6 mm area of susceptibility artifact and vague postcontrast enhancement. No signif icant change. Midline structures demonstrate normal morphology. The craniocervical junction is normal. Post contrast images otherwise demonstrate no evidence of pathologic enhancement. Dural venous sinus es are patent. Mild mucosal thickening ethmoid air cells. Rightward nasal septal deviation. Globes appear intact. IMPRESSION: 1. Stable exam with a 6 mm focus of susceptibility artifact within the right parietal lobe showing fa int postcontrast enhancement, probably relating to a cryptic AVM. 2. No acute intracranial abnormality seen. [facility], Workstation: [id number], 11/06/2024 8:00 PM
== END | disposition home or self-care (01) ==
LOC: RADMRIMAIN 08:39
PROVIDERS: ATTEND Psychiatry & Neurology Neurology
DX: Q27.30 Arteriovenous malformation, site unspecified (principal); Z87.820 Personal history of traumatic brain injury
CPT/HCPCS: 70553; A9585

== ENCOUNTER 2024-12-18 09:36 | Day surgery (SDC) | payer OTHER ==
[2024-12-14 12:49] VITALS: BMI 24.0
[~2024-12-18 09:36] MED LIST: LIDOCAINE 1% (10MG/ML) FOR IV START INTRADERMA PRN
[2024-12-18] MEDS: IV FLUID CONTINUATION 1,000 ML IV ONE ×2 (10:20→11:21)
[2024-12-18] MEDS: LACTATED RINGERS 1,000 ML IV SCH (10:24)
[2024-12-18 10:27] VITALS: BP 135/73; PULSE 79; RESP 16; TEMP 97.2
== END 2024-12-18 11:24 | disposition home or self-care (01) ==
LOC: ORWHC2ENDO 09:36
PROVIDERS: ATTEND Surgery
DX: Z53.8 Procedure and treatment not carried out for other reasons (principal); Z12.11 Encounter for screening for malignant neoplasm of colon
CPT/HCPCS: 84703